=== PATIENT | female | born 1950 | race Caucasian/White ===

== ENCOUNTER → 2016-07-21 | Outpatient (CLI) | payer BC ==
[~2016-07-21] MED LIST: ASPI81TA28 PO; ATOR-24 PO; FLUO10CA48 PO; HYDR25TA5 PO; PLV75 PO
--- NOTE | 2016-07-25 16:27 | MAMMOGRAPHY REPORT ---
BILATERAL DIGITAL SCREENING MAMMOGRAM TOMOSYNTHESIS WITH CAD: 07/21/2016 CLINICAL HISTORY: Routine screening. Patient has no complaints. TECHNIQUE: Breast tomosynthesis in addition to standard 2D mammography was performed. Current study was also evaluated with a Computer Aided Detection (CAD) system. COMPARISON: Comparison is made to exams dated: 06/06/2012 mammogram and 12/07/2005 mammogram - [facility]. BREAST COMPOSITION: There are scattered areas of fibroglandular density in both breasts. FINDINGS: There are a few benign-appearing calcifications in the breasts. No new suspicious mass, ar chitectural distortion or cluster of microcalcifications is seen. IMPRESSION: ACR BI-RADS CATEGORY 1: NEGATIVE There is no mammographic evidence of malignancy. A 1 year screening mammogram is recommended. The pa tient will receive written notification of the results. Approximately 10% of breast cancers are not detected with mammography. A negative mammographic report should not delay biopsy if a clinically suggestive mass is present. Rosi Vazquez M.D. ay/:07/25/2016 16:02:56 Banquet Stewardess: Nancy DELGADO(Luzmaria)(Luna), [facility] letter sent: Normal 1/2 BI-RADS Code: ACR BI-RADS Category 1: Negative
== END | disposition home or self-care (01) ==
LOC: C.MAMM 14:27
PROVIDERS: ATTEND Family Medicine
DX: Z12.31 Encounter for screening mammogram for malignant neoplasm of breast (principal)

== ENCOUNTER 2018-11-12 20:02 | Inpatient (IN) ==
[2018-11-12] MEDS ORDERED: SODIUM CHLORIDE 0.9% 1000ML 2,000 ML IV ONE (21:28)
[2018-11-12 22:15] LABS: Basophils # (auto) 0.02 K/uL (0-0.2); Basophils % (auto) 0.2 %; Eosinophils % (auto) 0.9 %; Hematocrit (blood only) 36.7 % (37-47); Hemoglobin 12.7 g/dL (12.0-16.0); Immature Granulocytes # (auto) 0.03 K/uL (0.00-0.02); Immature Granulocytes % (auto) 0.3 %; Lymphocytes # (auto) 3.41 K/uL (1.2-3.4); Lymphocytes % (auto) 29.1 %; Mean Corpuscular Hemoglobin 30.2 pg (25-34); Mean Corpuscular Hgb Conc 34.6 g/dL (32-36); Mean Corpuscular Volume 87.4 fL (80-100); Mean Platelet Volume 10.3 fL (7.4-10.4); Monocytes % (auto) 6.8 %; Neutrophils # (auto) 7.37 K/uL (1.4-6.5); Neutrophils % (auto) 62.7 %; Platelet Count 364 K/uL (130-400); RDW Coefficient of Variation 15.1 % (11.5-14.5); RDW Standard Deviation 48.4 fL (36.4-46.3); White Blood Count 11.73 K/uL (4.8-10.8)
--- NOTE | 2018-11-12 22:38 | Ultrasound Report ---
ULTRASOUND RIGHT UPPER QUADRANT ABDOMEN CLINICAL HISTORY: Jaundice. 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 COMPARISON STUDY: Abdominal CT dated 10/22/2018. TECHNIQUE: Real-time, grayscale, and color flow sonography of the right upper quadrant of the abdomen was performed. Images are reviewed in the transverse and longitudinal planes. FINDINGS: Liver: The liver is normal in size and somewhat heterogeneous and echotexture. There is moderate intr ahepatic biliary ductal dilatation. The main portal vein is patent. Gallbladder: The the gallbladder is markedly abnormal with large calcified gallstones. The gallbladde r wall is thickened measuring up to 6 mm and shows abnormal flow on color imaging. No pericholecystic fluid is identified. A sonographic Cespedes's sign is reportedly absent. The common bile duct measures up to 1.1 cm in diameter. Pancreas: Visualized portions of the pancreatic head and body are normal in appearance. The splenic v ein is patent. Right kidney: Survey images of the right kidney demonstrate normal size and echotexture. There is no hydronephrosis. Ascites: None. IMPRESSION: 1. There is intra and extrahepatic biliary ductal dilatation, likely unchanged from the 10/22/2018 CT scan. 2. Markedly thick-walled and abnormal appearing gallbladder with large calcified gallstones. This wou ld be consistent with the reported history of gallbladder carcinoma. Correlation the patient's oncolo gical history will be required. 3. A sonographic Cespedes's sign is reportedly absent. Given the abnormal gallbladder acute cholecystit is would be impossible to exclude and clinical correlation will be required. Electronically signed by: Kwasi Diaz M.D. 11/12/2018 10:36 PM
[2018-11-12 22:55] LABS: Appearance Urine Cloudy (Clear); Blood Urine Trace (Negative); Color Urine Dark Yellow; Epithelial Cell Urine Auto >30 /lpf (0-5); Glucose Urine UA Negative (Negative); Ketones Urine Trace (Negative); Leukocyte Esterase Urine 1+ (Negative); Nitrite Urine Positive (Negative); Protein Urine 1+ (Negative); Specific Gravity Urine 1.023 (1.000-1.030); Urobilinogen Urine Negative (Negative)
[2018-11-12 23:02] LABS: Bilirubin Urine 3+ (Negative); Ictotest Urine Positive (Negative)
[2018-11-12 23:04] LABS: Mucus Urine Present (None Prsent); RBC Urine Automated 0-4 /hpf (0-4)
[2018-11-12 23:06] LABS: Bacteria Urine Automated 1+ (Negative)
[2018-11-12 23:08] LABS: Albumin Globulin Ratio 0.5 (0.9-2); Albumin Level 2.5 gm/dl (3.4-5.0); BUN Creatinine Ratio 28.1 (10-20); Bilirubin,Total 9.1 mg/dl (0.2-1); Calcium 9.2 mg/dl (8.5-10.1); Creatinine Clr Calc Pharmacy 72.7 ml/min; Est GFR (African American) 108.3; Est GFR (Non-African American) 93.5; Globulin 5.3 gm/dl (2.5-4.0); Total Protein 7.8 gm/dl (6.4-8.2)
[2018-11-12 23:59] LABS: Potassium 3.5 mmol/L (3.5-5.1)
--- NOTE | 2018-11-13 00:34 | Emergency Department Note ---
Entered by Luz Dong acting as a scribe for Sal Grullon DO History of Present Illness General Chief complaint: Referred by Doctor Stated complaint: POSSIBLE JAUNDICE Source: patient History of Present Illness Provider complaint: weakness Onset (ago): day(s) 4 Pain Consistency: + other (persistent) Maximum Pain Intensity: 6 Relieved By: + none Exacerbated By: + none Associated symptoms: + other (-runny nose, +jaundice); no cough and no shortness of breath The patient is a 68 year old female who presents to the Emergency Room with complaints of weakness for the past 4 days. The patient reports that she had gotten her biopsy results back today that showed her gallbladder cancer. She notes that her PCP Dr. Honeycutt referred her to the ED because her was worried that she has appeared yellow for the past 4 days. She mentions that her biopsy was done at [facility] on the . She notes that her PCP has spoken to Dr. Taylor- Oncology. The patient denies any cough, runny nose, or shortness of breath. Home Medications Home Medications Medication Instructions Recorded Confirmed Type atorvastatin 40 mg PO QPM 10/22/18 11/12/18 History citalopram 10 mg PO QAM 10/22/18 11/12/18 History clopidogrel 75 mg PO QAM 10/22/18 11/12/18 History hydrochlorothiazide 12.5 mg PO QAM 10/22/18 11/12/18 History omeprazole 20 mg PO DAILY 11/12/18 11/12/18 History ondansetron 4 mg PO Q8 PRN 11/12/18 11/12/18 History oxycodone 5 mg PO Q4 PRN 11/12/18 11/12/18 History Allergies Allergy/AdvReac Type Severity Reaction Status Date / Time Penicillins Allergy Intermediate Hives Verified 11/12/18 23:02 Past Med/Surg History Medical History Ambulatory dysfunction Carotid stenosis Social History Preferred Language: Slovak Feels Safe at Home: Yes Smoking Status: Former smoker Review of Systems See HPI for pertinent positives & negatives. and A total of 10 systems reviewed and were otherwise negative Physical Exam Vital Signs Vital Signs - 24 hr 11/12/18 20:24 11/12/18 22:36 11/13/18 00:01 Temperature 36.7 C Temperature Source Oral Sepsis Recent Fever Within 48 Hours No Sepsis New/Unexplained Change in Mental Status No Sepsis Action Taken by Nursing No Action Required Pulse Rate 80 Pulse Rate [Apical] 71 77 Respiratory Rate 16 18 18 Blood Pressure 138/62 Blood Pressure [Left Arm] 157/75 H 178/72 H Blood Pressure Mean 87 Blood Pressure Mean [Left Arm] 102 107 Pulse Oximetry 95 94 94 Oxygen Delivery Method Room Air Room Air Room Air GENERAL: chronically-ill appearing, jaundice, no acute distress EYE EXAM: scleral icterus OROPHARYNX: no exudate, no erythema, lips, buccal mucosa, and tongue normal and mucous membranes are moist NECK: supple, no nuchal rigidity, no adenopathy, non-tender LUNGS: Clear to auscultation. Normal chest wall mechanics HEART: no murmurs, S1 normal and S2 normal ABDOMEN: tenderness to palpation of right upper quadrant, abdomen soft, normo- active bowel sounds, no masses, no rebound or guarding. BACK: Back is symmetrical on inspection and there is no deformity, no midline tenderness, no CVA tenderness. SKIN: no rashes and no bruising UPPER EXTREMITIES: upper extremities are grossly normal. LOWER EXTREMITIES: No pitting edema. NEURO EXAM: Normal sensorium, cranial nerves II-XII grossly intact, normal speech, no gross weakness of arms, no gross weakness of legs. Course ED COURSE: Vital signs were reviewed and showed normotensive. The patients medical record was reviewed The above diagnostic studies were performed and reviewed. ED treatments and interventions as stated above. 2: The patient was evaluated in room C6. A complete history and physical examination was performed. 2345: I discussed the patient's case with [facility], they report that they do not haven any beds for her tonight. The patient will be admitted for overnight observation here. 2350: I discussed the patient's case with Dr. Carbone- [facility] Hospitalist, he will accept the patient for further evaluation. 2357: Upon reevaluation, the patient is resting comfortably. I discussed my findings with the patient and she understands and agrees with the treatment plan. Based on the patients age, coexisting illnesses, exam and lab findings the decision to treat as an inpatient was made. The patient remained stable while under my care. The patient will be evaluated for further management. Administered Medications Discontinued Medications Sodium Chloride (Nss 1000ml) 2,000 mls @ 999 mls/hr IV .Q2H1M ONE Stop: 11/12/18 23:28 Last Admin: 11/12/18 22:12 Dose: 999 mls/hr Documented by: [id number] Medical Decision Making Differential Diagnosis Differential diagnoses includes but is not limited to gastritis, peptic ulcer disease, GERD, gallbladder disease, pancreatitis, small bowel obstruction, acute coronary syndrome, pericarditis, ischemic bowel, irritable bowel disease, irritable bowel syndrome, appendicitis, diverticulitis, malignancy, hernia, urinary tract infection, torsion, perforation, trauma, infectious. Medical Records Attestation: I reviewed the patient's medical records. Home Medications Current Medication List: was personally reviewed by me Laboratory Data Attestation: I reviewed the patient's lab results. Result diagrams: 11/12/18 22:05 11/12/18 23:25 Lab Results 11/12/18 11/12/18 11/12/18 Range/Units 22:05 22:05 22:06 WBC 11.73 H (4.8-10.8) K/uL RBC 4.20 (4.2-5.4) M/uL Hgb 12.7 (12.0-16.0) g/dL Hct 36.7 L (37-47) % MCV 87.4 (80-100) fL MCH 30.2 (25-34) pg MCHC 34.6 (32-36) g/dL RDW Std Deviation 48.4 H (36.4-46.3) fL RDW Coeff of Arleen 15.1 H (11.5-14.5) % Plt Count 364 (130-400) K/uL MPV 10.3 (7.4-10.4) fL Immature Gran % (Auto) 0.3 % Neut % (Auto) 62.7 % Lymph % (Auto) 29.1 % Pettis % (Auto) 6.8 % Eos % (Auto) 0.9 % Baso % (Auto) 0.2 % Immature Gran # (Auto) 0.03 H (0.00-0.02) K/uL Neut # (Auto) 7.37 H (1.4-6.5) K/uL Lymph # (Auto) 3.41 H (1.2-3.4) K/uL Pettis # (Auto) 0.80 H (0.11-0.59) K/uL Eos # (Auto) 0.10 (0-0.5) K/uL Baso # (Auto) 0.02 (0-0.2) K/uL Sodium 131 L (136-145) mmol/L Potassium (3.5-5.1) mmol/L Chloride 94 L (98-107) mmol/L Carbon Dioxide 32 (21-32) mmol/L Anion Gap 5.0 (3-11) BUN 18 (7-18) mg/dl Creatinine 0.63 (0.6-1.2) mg/dl Est Cr Clr Drug Dosing 72.7 ml/min Est GFR ( Amer) 108.3 Est GFR (Non-Af Amer) 93.5 BUN/Creatinine Ratio 28.1 H (10-20) Glucose 107 H (70-99) mg/dl Calcium 9.2 (8.5-10.1) mg/dl Total Bilirubin 9.1 H (0.2-1) mg/dl AST (15-37) U/L ALT 291 H (12-78) U/L Alkaline Phosphatase 1573 H (45-117) U/L Total Protein 7.8 (6.4-8.2) gm/dl Albumin 2.5 L (3.4-5.0) gm/dl Globulin 5.3 H (2.5-4.0) gm/dl Albumin/Globulin Ratio 0.5 L (0.9-2) Lipase 112 (73-393) U/L Urine Color Dark Yellow Urine Appearance Cloudy A (Clear) Urine pH 6.0 (4.5-7.5) Ur Specific Fingal 1.023 (1.000-1.030) Urine Protein 1+ H (Negative) Urine Glucose (UA) Negative (Negative) Urine Ketones Trace H (Negative) Urine Blood Trace H (Negative) Urine Nitrite Positive A (Negative) Urine Bilirubin 3+ H (Negative) Urine Urobilinogen Negative (Negative) Ur Leukocyte Esterase 1+ H (Negative) Urine WBC (Auto) 10-30 H (0-5) /hpf Urine RBC (Auto) 0-4 (0-4) /hpf U Hyaline Cast (Auto) 5-10 H (0-5) /lpf U Epithel Cells (Auto) >30 H (0-5) /lpf Urine Bacteria (Auto) 1+ H (Negative) Urine Mucus Present A (None Prsent) 11/12/18 Range/Units 23:25 WBC (4.8-10.8) K/uL RBC (4.2-5.4) M/uL Hgb (12.0-16.0) g/dL Hct (37-47) % MCV (80-100) fL MCH (25-34) pg MCHC (32-36) g/dL RDW Std Deviation (36.4-46.3) fL RDW Coeff of Arleen (11.5-14.5) % Plt Count (130-400) K/uL MPV (7.4-10.4) fL Immature Gran % (Auto) % Neut % (Auto) % Lymph % (Auto) % Pettis % (Auto) % Eos % (Auto) % Baso % (Auto) % Immature Gran # (Auto) (0.00-0.02) K/uL Neut # (Auto) (1.4-6.5) K/uL Lymph # (Auto) (1.2-3.4) K/uL Pettis # (Auto) (0.11-0.59) K/uL Eos # (Auto) (0-0.5) K/uL Baso # (Auto) (0-0.2) K/uL Sodium (136-145) mmol/L Potassium 3.5 (3.5-5.1) mmol/L Chloride (98-107) mmol/L Carbon Dioxide (21-32) mmol/L Anion Gap (3-11) BUN (7-18) mg/dl Creatinine (0.6-1.2) mg/dl Est Cr Clr Drug Dosing ml/min Est GFR ( Amer) Est GFR (Non-Af Amer) BUN/Creatinine Ratio (10-20) Glucose (70-99) mg/dl Calcium (8.5-10.1) mg/dl Total Bilirubin (0.2-1) mg/dl AST 416 H (15-37) U/L ALT (12-78) U/L Alkaline Phosphatase (45-117) U/L Total Protein (6.4-8.2) gm/dl Albumin (3.4-5.0) gm/dl Globulin (2.5-4.0) gm/dl Albumin/Globulin Ratio (0.9-2) Lipase (73-393) U/L Urine Color Urine Appearance (Clear) Urine pH (4.5-7.5) Ur Specific Fingal (1.000-1.030) Urine Protein (Negative) Urine Glucose (UA) (Negative) Urine Ketones (Negative) Urine Blood (Negative) Urine Nitrite (Negative) Urine Bilirubin (Negative) Urine Urobilinogen (Negative) Ur Leukocyte Esterase (Negative) Urine WBC (Auto) (0-5) /hpf Urine RBC (Auto) (0-4) /hpf U Hyaline Cast (Auto) (0-5) /lpf U Epithel Cells (Auto) (0-5) /lpf Urine Bacteria (Auto) (Negative) Urine Mucus (None Prsent) Imaging Data Radiologist's Impression: Radiology results as stated below per my review and the radiologist's interpretation: ULTRASOUND RIGHT UPPER QUADRANT ABDOMEN CLINICAL HISTORY: Jaundice. 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 COMPARISON STUDY: Abdominal CT dated 10/22/2018. TECHNIQUE: Real-time, grayscale, and color flow sonography of the right upper quadrant of the abdomen was performed. Images are reviewed in the transverse and longitudinal planes. FINDINGS: Liver: The liver is normal in size and somewhat heterogeneous and echotexture. There is moderate intrahepatic biliary ductal dilatation. The main portal vein is patent. Gallbladder: The the gallbladder is markedly abnormal with large calcified gallstones. The gallbladder wall is thickened measuring up to 6 mm and shows abnormal flow on color imaging. No pericholecystic fluid is identified. A sonographic Cespedes's sign is reportedly absent. The common bile duct measures up to 1.1 cm in diameter. Pancreas: Visualized portions of the pancreatic head and body are normal in appearance. The splenic vein is patent. Right kidney: Survey images of the right kidney demonstrate normal size and echotexture. There is no hydronephrosis. Ascites: None. IMPRESSION: 1. There is intra and extrahepatic biliary ductal dilatation, likely unchanged from the 10/22/2018 CT scan. 2. Markedly thick-walled and abnormal appearing gallbladder with large calcified gallstones. This would be consistent with the reported history of gallbladder carcinoma. Correlation the patient's oncological history will be required. 3. A sonographic Cespedes's sign is reportedly absent. Given the abnormal gallbladder acute cholecystitis would be impossible to exclude and clinical correlation will be required. Electronically signed by: Kwasi Diaz M.D. 11/12/2018 10:36 PM Blood Pressure Blood Pressure Findings: Elevated blood pressure Blood Pressure Disposition: further management by hospitalist NACHO Narrative Patient is a 68-year-old female that presents the ER for right upper quadrant abdominal pain associated with a recent diagnosis of biliary carcinoma. She has been turning yellow for the past 4 to 5 days. On my exam she is clearly jaundiced. IV was established blood work was obtained showed mild leukocytosis of 11.7 thousand consistent with previous. No significant anemia. BMP with mild hyponatremia. Patient had a marked transaminitis along with an elevated bilirubin at 9.1. Alk phos is elevated at 1500 as well. UA with epithelial cells and nitrates although nitrates are likely secondary to the elevated bilirubin. Will not treat at this time as she is asymptomatic. Ultrasound shows intra-and extra hepatic ducts dilated. Discussed with Dr. Hernández here who recommended transfer. Discussed with [facility] hospitalist Dr. Galo [facility]. They graciously accepted the patient unfortunately there are no beds at this time. Patient will be placed on the waiting list. Discussed with our hospitalist as the patient will be in-house to at least midmorning if not tomorrow afternoon. Patient family were updated bedside. Impression & Plan Gallbladder cancer, Biliary obstruction, Jaundice, Transaminitis Discharge Plan Visit Data Chief Complaint: Referred by Doctor Stated Complaint: POSSIBLE JAUNDICE ED Provider: Sal Grullon Discharge Problem: Gallbladder cancer, Biliary obstruction, Jaundice, Transaminitis Patient Disposition: Admitted As Inpatient Forms Stand Alone Forms: My [facility] Prescriptions Prescriptions: No Action atorvastatin 40 mg tablet 40 mg PO QPM RF: 0 citalopram 10 mg tablet 10 mg PO QAM RF: 0 clopidogrel 75 mg tablet 75 mg PO QAM RF: 0 hydrochlorothiazide 12.5 mg tablet 12.5 mg PO QAM RF: 0 oxycodone 5 mg capsule 5 mg PO Q4 PRN (Reason: Pain) RF: 0 omeprazole 20 mg capsule,delayed release(DR/EC) 20 mg PO DAILY RF: 0 ondansetron 4 mg tablet,disintegrating 4 mg PO Q8 PRN (Reason: Nausea) RF: 0 Referrals Referrals: Alona Honeycutt MD [Primary Care Provider] - The scribe's documentation has been prepared under my direction and personally reviewed by me in its entirety. I confirm that the note above accurately reflects all work, treatment, procedures, and medical decision making performed by me.
--- NOTE | 2018-11-13 00:41 | History & Physical Report ---
Date of Service November 13, 2018 Assessment & Plan (1) Jaundice: This is a 68 yo F who was recently diagnosed with gallbladder cancer, who presents with worsening jaundice. She had spoken with her specialists at [facility] earlier today, as they were giving her the confirmatory d iagnosis of gallbladder cancer. She mentioned that her skin has become more and more yellow and they advised her to come to the ED. Endorses stable intermittent right upper quadrant pain that radiates to her back, which she has been controlling with as needed oxycodone 5 mg every 4 hours. She otherwise denies headache, chest pain, difficulty breathing, numbness or tingling or leg pain. Stools have been regular. Labs in the ED remarkable for mild leukocytosis, hyponatremia sodium 131, normal BUN and creatinine, transaminitis AST over ALT 416/291, elevated alk phos 1573, hyperbilirubinemia 9.1, hypoalbuminemia 2.5, normal lipase. Gallbladder ultrasound showed markedly thick-walled and abnormal appearing gallbladder with large calcified stones, intra-and extrahepatic biliary ductal dilatation. Hyperbilirubinemia, transaminitis, elevated alk phos and new jaundice in setting of recently diagnosed gallbladder cancer with concern for metastases -Plan for transfer to [facility] once bed available -- they plan to consult GI, keep NPO, plan for ERCP with stenting, with further oncologic plan to be established. (Agustín Galo M.D. Internal Medicine Attending Physician) -will admit to med/tele while awaiting transfer, keep NPO except for critical meds -- will HOLD AM plavix 11/14 in light of hi risk procedure -NSS @ maintenance in setting of mild hyponatremia -Pain control with IV dilaudid FEN/GI: NPO except meds/sips. NSS @ 80ml/hr DVT ppx: SCDs. No chemical anticoagulation while awaiting instrumentation upon transfer to [facility]. CODE STATUS: DNR/DNI as discussed with pt, states she has a living will as well. DISPO: med/tele while awaiting transfer to [facility]. Other ongoing medical problems: Hypertension -continue hydrochlorothiazide h/o CVA, carotid artery stenosis status post endarterectomy and stents-will HOLD AM plavix 11/14 in light of high risk procedure Anxiety-continue citalopram to avoid withdrawal symptoms Depression-as above Hyperlipidemia-hold statin in setting of transaminitis, while n.p.o. Systolic murmur-known, stable. (2) Gallbladder cancer: (3) Biliary obstruction: (4) Transaminitis: History of Present Illness Chief Complaint: recent diagnosis gallbladder cancer, new jaundice, hyperbilirubinemia, awaiting transfer to [facility] Primary Care Provider: Alona Honeycutt MD This is a 68 yo F who was recently diagnosed with gallbladder cancer, who presents with worsening jaundice. She had spoken with her specialists at [facility] earlier today, as they were giving her the confirmatory diagnosis of gallbladder cancer. She mentioned that her skin has become more and more yellow and they advised her to come to the ED. Labs in the ED remarkable for mild leukocytosis, hyponatremia sodium 131, normal BUN and creatinine, transaminitis AST over ALT 416/291, elevated alk phos 1573, hyperbilirubinemia 9.1, hypoalbuminemia 2.5, normal lipase. Gallbladder ultrasound showed markedly thick-walled and abnormal appearing gallbladder with large calcified stones, intra-and extrahepatic biliary ductal dilatation. Patient herself reports right upper quadrant pain that radiates to her back, which she has been controlling with as needed oxycodone 5 mg every 4 hours. She otherwise denies headache, chest pain, difficulty breathing, numbness or tingling or leg pain. Stools have been regular. PMH Hypertension Stroke Anxiety Depression Hyperlipidemia Carotid artery stenosis status post endarterectomy and stents, on Plavix Systolic murmur Allergies Allergy/AdvReac Type Severity Reaction Status Date / Time Penicillins Allergy Intermediate Hives Verified 11/12/18 23:02 Home Medications Home Medications Medication Instructions Recorded Confirmed Type atorvastatin 40 mg PO QPM 10/22/18 11/12/18 History citalopram 10 mg PO QAM 10/22/18 11/12/18 History clopidogrel 75 mg PO QAM 10/22/18 11/12/18 History hydrochlorothiazide 12.5 mg PO QAM 10/22/18 11/12/18 History omeprazole 20 mg PO DAILY 11/12/18 11/12/18 History ondansetron 4 mg PO Q8 PRN 11/12/18 11/12/18 History oxycodone 5 mg PO Q4 PRN 11/12/18 11/12/18 History Past Med/Surg History Medical History Ambulatory dysfunction Carotid stenosis Social History Preferred Language: Citizen Of [place] Feels Safe at Home: Yes Smoking Status: Former smoker Review of Systems Review of Systems: All systems reviewed & are unremarkable except as noted in HPI & below Physical Exam Physical Exam: Vitals noted and within normal limits with the exception of hypertension 181/90. GENERAL: Awake, alert to person, place, and time, nontoxic-appearing, in no distress. HENT: Normocephalic, atraumatic. Mucus membranes appear moist. EYES: Normal conjunctiva. Sclera very mildly icteric. EOMI. NECK: Supple. Full range of motion. No JVD. RESPIRATORY: Clear to auscultation. Normal work of breathing. CARDIAC: Regular rate, normal rhythm. Extremities warm and well perfused, mild systolic murmur noted; ABDOMEN: Soft, non-distended. Mild tenderness to palpation in right upper qu adrant. No rebound or guarding. No masses. Bowel sounds are normal. LOWER EXTREMITIES: Inspection of calves reveal equal size bilaterally. They are non-tender. No edema. No discoloration. NEURO: No gross focal motor deficits noted. Sensation in tact. CN II-XII grossly in tact. . SKIN: + Jaundice noted. PSYCH: Appropriate mood and affect. Cooperative. Exam as done by Mary Grace Brown MD, Back Tender. Results & Data Vital Signs (Past 12 Hours) Vital Signs Temp Pulse Pulse Resp BP BP Pulse Ox 11/13/18 00:01 77 18 178/72 H 94 11/12/18 22:36 71 18 157/75 H 94 11/12/18 20:24 36.7 C 80 16 138/62 95 Laboratory Results 11/12/18 11/12/18 11/12/18 Range/Units 23:25 22:06 22:05 WBC (4.8-10.8) K/uL RBC (4.2-5.4) M/uL Hgb (12.0-16.0) g/dL Hct (37-47) % MCV (80-100) fL MCH (25-34) pg MCHC (32-36) g/dL RDW Std Deviation (36.4-46.3) fL RDW Coeff of Arleen (11.5-14.5) % Plt Count (130-400) K/uL MPV (7.4-10.4) fL Immature Gran % (Auto) % Neut % (Auto) % Lymph % (Auto) % [place] % (Auto) % Eos % (Auto) % Baso % (Auto) % Immature Gran # (Auto) (0.00-0.02) K/uL Neut # (Auto) (1.4-6.5) K/uL Lymph # (Auto) (1.2-3.4) K/uL [place] # (Auto) (0.11-0.59) K/uL Eos # (Auto) (0-0.5) K/uL Baso # (Auto) (0-0.2) K/uL Sodium 131 L (136-145) mmol/L Potassium 3.5 (3.5-5.1) mmol/L Chloride 94 L (98-107) mmol/L Carbon Dioxide 32 (21-32) mmol/L Anion Gap 5.0 (3-11) BUN 18 (7-18) mg/dl Creatinine 0.63 (0.6-1.2) mg/dl Est Cr Clr Drug Dosing 72.7 ml/min Est GFR ( Amer) 108.3 Est GFR (Non-Af Amer) 93.5 BUN/Creatinine Ratio 28.1 H (10-20) Glucose 107 H (70-99) mg/dl Calcium 9.2 (8.5-10.1) mg/dl Total Bilirubin 9.1 H (0.2-1) mg/dl AST 416 H (15-37) U/L ALT 291 H (12-78) U/L Alkaline Phosphatase 1573 H (45-117) U/L Total Protein 7.8 (6.4-8.2) gm/dl Albumin 2.5 L (3.4-5.0) gm/dl Globulin 5.3 H (2.5-4.0) gm/dl Albumin/Globulin Ratio 0.5 L (0.9-2) Lipase 112 (73-393) U/L Urine Color Dark Yellow Urine Appearance Cloudy A (Clear) Urine pH 6.0 (4.5-7.5) Ur Specific [place] 1.023 (1.000-1.030) Urine Protein 1+ H (Negative) Urine Glucose (UA) Negative (Negative) Urine Ketones Trace H (Negative) Urine Blood Trace H (Negative) Urine Nitrite Positive A (Negative) Urine Bilirubin 3+ H (Negative) Urine Urobilinogen Negative (Negative) Ur Leukocyte Esterase 1+ H (Negative) Urine WBC (Auto) 10-30 H (0-5) /hpf Urine RBC (Auto) 0-4 (0-4) /hpf U Hyaline Cast (Auto) 5-10 H (0-5) /lpf U Epithel Cells (Auto) >30 H (0-5) /lpf Urine Bacteria (Auto) 1+ H (Negative) Urine Mucus Present A (None Prsent) 11/12/18 Range/Units 22:05 WBC 11.73 H (4.8-10.8) K/uL RBC 4.20 (4.2-5.4) M/uL Hgb 12.7 (12.0-16.0) g/dL Hct 36.7 L (37-47) % MCV 87.4 (80-100) fL MCH 30.2 (25-34) pg MCHC 34.6 (32-36) g/dL RDW Std Deviation 48.4 H (36.4-46.3) fL RDW Coeff of Arleen 15.1 H (11.5-14.5) % Plt Count 364 (130-400) K/uL MPV 10.3 (7.4-10.4) fL Immature Gran % (Auto) 0.3 % Neut % (Auto) 62.7 % Lymph % (Auto) 29.1 % [place] % (Auto) 6.8 % Eos % (Auto) 0.9 % Baso % (Auto) 0.2 % Immature Gran # (Auto) 0.03 H (0.00-0.02) K/uL Neut # (Auto) 7.37 H (1.4-6.5) K/uL Lymph # (Auto) 3.41 H (1.2-3.4) K/uL [place] # (Auto) 0.80 H (0.11-0.59) K/uL Eos # (Auto) 0.10 (0-0.5) K/uL Baso # (Auto) 0.02 (0-0.2) K/uL Sodium (136-145) mmol/L Potassium (3.5-5.1) mmol/L Chloride (98-107) mmol/L Carbon Dioxide (21-32) mmol/L Anion Gap (3-11) BUN (7-18) mg/dl Creatinine (0.6-1.2) mg/dl Est Cr Clr Drug Dosing ml/min Est GFR ( Amer) Est GFR (Non-Af Amer) BUN/Creatinine Ratio (10-20) Glucose (70-99) mg/dl Calcium (8.5-10.1) mg/dl Total Bilirubin (0.2-1) mg/dl AST (15-37) U/L ALT (12-78) U/L Alkaline Phosphatase (45-117) U/L Total Protein (6.4-8.2) gm/dl Albumin (3.4-5.0) gm/dl Globulin (2.5-4.0) gm/dl Albumin/Globulin Ratio (0.9-2) Lipase (73-393) U/L Urine Color Urine Appearance (Clear) Urine pH (4.5-7.5) Ur Specific [place] (1.000-1.030) Urine Protein (Negative) Urine Glucose (UA) (Negative) Urine Ketones (Negative) Urine Blood (Negative) Urine Nitrite (Negative) Urine Bilirubin (Negative) Urine Urobilinogen (Negative) Ur Leukocyte Esterase (Negative) Urine WBC (Auto) (0-5) /hpf Urine RBC (Auto) (0-4) /hpf U Hyaline Cast (Auto) (0-5) /lpf U Epithel Cells (Auto) (0-5) /lpf Urine Bacteria (Auto) (Negative) Urine Mucus (None Prsent) Supervising Physician Co-Signing Physician Notes Patient was seen and examined by me personally. I reviewed the chart, the orders and discussed the case in detail with Dr. Mary Grace Brown MD. I read this H&P and agree with its contents to entirety. PG Care Time/CCT Total # of Minutes Spent Total Time Spent with Patient: Total time spent is greater than 50% in coordination of care (as documented) at patient's floor/unit and/or counseling patient: Resident Activity Tracking Resident Involvement: Resident Care Provided Care Provided: Adult [facility] Medicine
[2018-11-13] MEDS ORDERED: MAGNESIUM HYDROXIDE SUSP 30 ML UDC PO PRN (02:42)
[2018-11-13] MEDS ORDERED: ONDANSETRON INJ 2 MG/ML 2 ML VIAL IV PRN (02:42)
[2018-11-13] MEDS ORDERED: ALUMINUM/MAGNESIUM SUSP 30 ML UDC PO PRN (02:42)
[2018-11-13] MEDS: SODIUM CHLORIDE 0.9% 1000ML 1,000 ML IV SCH ×2 (03:03→15:27)
[2018-11-13] MEDS: HYDROmorphone INJ 0.5 MG/0.5 ML SYR IV PRN ×5 (03:04→23:35)
--- NOTE | 2018-11-13 07:43 | Discharge Summary ---
Date of Service November 13, 2018 Admission HPI Per Admitting Provider This is a 68 yo F who was recently diagnosed with gallbladder cancer, who presents with worsening jaundice. She had spoken with her specialists at [facility] earlier today, as they were giving her the confirmatory diagnosis of gallbladder cancer. She mentioned that her skin has become more and more yellow and they advised her to come to the ED. Labs in the ED remarkable for mild leukocytosis, hyponatremia sodium 131, normal BUN and creatinine, transaminitis AST over ALT 416/291, elevated alk phos 1573, hyperbilirubinemia 9.1, hypoalbuminemia 2.5, normal lipase. Gallbladder ultrasound showed markedly thick-walled and abnormal appearing gallbladder with large calcified stones, intra-and extrahepatic biliary ductal dilatation. Patient herself reports right upper quadrant pain that radiates to her back, which she has been controlling with as needed oxycodone 5 mg every 4 hours. She otherwise denies headache, chest pain, difficulty breathing, numbness or tingling or leg pain. Stools have been regular. PMH Hypertension Stroke Anxiety Depression Hyperlipidemia Carotid artery stenosis status post endarterectomy and stents, on Plavix Systolic murmur Admission Exam Per Admitting Provider Vitals noted and within normal limits with the exception of hypertension 181/90. GENERAL: Awake, alert to person, place, and time, nontoxic-appearing, in no distress. HENT: Normocephalic, atraumatic. Mucus membranes appear moist. EYES: Normal conjunctiva. Sclera very mildly icteric. EOMI. NECK: Supple. Full range of motion. No JVD. RESPIRATORY: Clear to auscultation. Normal work of breathing. CARDIAC: Regular rate, normal rhythm. Extremities warm and well perfused, mild systolic murmur noted; ABDOMEN: Soft, non-distended. Mild tenderness to palpation in right upper quadrant. No rebound or guarding. No masses. Bowel sounds are normal. LOWER EXTREMITIES: Inspection of calves reveal equal size bilaterally. They are non-tender. No edema. No discoloration. NEURO: No gross focal motor deficits noted. Sensation in tact. CN II-XII grossly in tact. . SKIN: + Jaundice noted. PSYCH: Appropriate mood and affect. Cooperative. Exam as done by Mary Grace Brown MD, Modeling Instructor. Principal Diagnosis Jaundice secondary to gallbladder cancer Discharge Exam Vitals and nursing notes reviewed. GENERAL: Awake and alert, nontoxic-appearing, in no acute distress. HENT: Normocephalic, atraumatic. Mucus membranes moist. EYES: Normal conjunctiva. Sclera icteric. EOMI. NECK: Supple. Full range of motion. No JVD. RESPIRATORY: Clear to auscultation. Normal work of breathing. CARDIAC: Regular rate, normal rhythm. Extremities warm and well perfused, mild systolic murmur noted; ABDOMEN: Soft, non-distended. Mild tenderness to palpation in RUQ. No rebound or guarding. No masses. Bowel sounds are normal. LOWER EXTREMITIES: Inspection of calves reveal equal size bilaterally. They are non-tender. No edema. No discoloration. NEURO: No gross focal motor deficits noted. Sensation in tact. CN II-XII grossly in tact. . SKIN: + Jaundice noted. PSYCH: Appropriate mood and affect. Cooperative. Discharge Data Allergies Allergy/AdvReac Type Severity Reaction Status Date / Time Penicillins Allergy Intermediate Hives Verified 11/12/18 23:02 Consultations 11/12/18 23:54 ED Decision to Admit Stat 11/13/18 02:42 Consult Case Management - Discharge Planning Routine Ordered Studies 11/12/18 21:28 US gallbladder Stat Hospital Course (1) Jaundice: This is a 68 yo F who was recently diagnosed with gallbladder cancer, who presents with worsening jaundice. She had spoken with her specialists at [facility] earlier today, as they were giving her the confirmatory diagnosis of gallbladder cancer. She mentioned that her skin has become more and more yellow and they advised her to come to the ED. Endorses stable intermittent right upper quadrant pain that radiates to her back, which she has been controlling with as needed oxycodone 5 mg every 4 hours. She otherwise denies headache, chest pain, difficulty breathing, numbness or tingling or leg pain. Stools have been regular. Labs in the ED remarkable for mild leukocytosis, hyponatremia sodium 131, normal BUN and creatinine, transaminitis AST over ALT 416/291, elevated alk phos 1573, hyperbilirubinemia 9.1, hypoalbuminemia 2.5, normal lipase. Gallbladder ultrasound showed markedly thick-walled and abnormal appearing gallbladder with large calcified stones, intra-and extrahepatic biliary ductal dilatation. Hyperbilirubinemia, transaminitis, elevated alk phos and new jaundice in setting of recently diagnosed gallbladder cancer with concern for metastases Patient was admitted to general medical floor with telemetry for monitoring while awaiting transfer to [facility] for escalation of care. The night resident spoke with Agustín Galo M.D. Internal Medicine Attending Physician to coordinate transfer. Accepting physician request the patient to be kept n.p.o. and stay plan to consult GI for ERCP with stenting and further oncological work-up. Patient has been n.p.o. except sips and meds, held a.m. Plavix on November 13 in preparation of high risk procedure. Patient was provided MIVF with normal saline in the setting of mild hyponatremia and secondary to n.p.o. status. Pain control was provided with IV Dilaudid. FEN/GI: NPO except meds/sips. NSS @ 80ml/hr DVT ppx: SCDs. No chemical anticoagulation while awaiting instrumentation upon transfer to [facility]. CODE STATUS: DNR/DNI as discussed with pt, states she has a living will as well. DISPO: med/tele while awaiting transfer to [facility]. Other ongoing medical problems: Hypertension -continue hydrochlorothiazide h/o CVA, carotid artery stenosis status post endarterectomy and stents-will HOLD AM plavix 11/14 in light of high risk procedure Anxiety-continue citalopram to avoid withdrawal symptoms Depression-as above Hyperlipidemia-hold statin in setting of transaminitis, while n.p.o. Systolic murmur-known, stable. Devin Sepulveda MD PGY 2, FCM This chart was completed utilizing [employer] voice recognition software. Grammatical errors, random word insertions, pronoun errors, and in complete sentences are an occasional consequence of the system. Any questions or concerns about the content, text, or information contained within the body of this dictation should be addressed directly to the physician for clarification. (2) Gallbladder cancer: (3) Biliary obstruction: (4) Transaminitis: Total Time Total Time Spent Total Time Spent (In Minutes): >30 Discharge Plan Discharge Items Patient Disposition: Transfer Acute Care Hospital Reason For Visit: HYPERBILIRUBINEMIA, GB CANCER, AWAIT TRANSFER [facility] Discharge Diagnosis: Hyperbilirubinemia secondary to gallbladder cancer Activity: Resume your previous activity Non-emergency contact: Primary Care Provider Call non-emergency contact if: you have any medication questions and your pain is not controlled Follow-up/Referrals: Alona Honeycutt MD [Primary Care Provider] - Diet: Heart Healthy Addtl Attending Provider Instructions: Care instructions: You were admitted to [facility] for treatment of Hyperbilirubinemia secondary to gallbladder cancer. A discharge summary will be sent to your primary care physician to ensure continuity of care. Please bring this discharge summary with you to your next office appointment so that your provider can review it at that time. Labs in the ED remarkable for mild leukocytosis, hyponatremia sodium 131, normal BUN and creatinine, transaminitis AST over ALT 416/291, elevated alk phos 1573, hyperbilirubinemia 9.1, hypoalbuminemia 2.5, normal lipase. Gallbladder ultrasound showed markedly thick-walled and abnormal appearing gallbladder with large calcified stones, intra-and extrahepatic biliary ductal dilatation. Follow-up appointments: - Keep all your follow-up appointments as already scheduled. If you cannot make an appointment, notify your provider. - Please call to request a follow-up appointment with your primary care physician within one week of discharge. Please let us know if you are unable to obtain an appointment Medications: - Your medication list has been reviewed and reconciled upon discharge to ensure accuracy and continuity of care. - You are provided with a list of all your current medications at this time. Please review this list closely and make note of any changes. - Please take all of your medications exactly as prescribed. - Tell your primary care provider if you cannot afford your medications. - Call your primary care provider if you are having any side effects or any other problems. - Call your primary care provider before taking any over the counter medications or supplements, including herbals and vitamins, because some of these may interact with your current medications and/or make your symptoms worse. Symptoms: Please call your primary care provider for symptoms including, but not limited to: fevers (temperatures greater than 100.4), chills, intractable nausea or vomiting, diarrhea, rash, shortness of breath, bleeding, pain, or if you experience any worsening of the symptoms that brought you to the hospital. For EMERGENCY and VERY SERIOUS health-related issues, such as chest pain, shortness of breath, or sudden onset of the symptoms that brought you to the hospital, you may need to call 911 or go directly to the Emergency Room It has been our privilege to take care of you during your hospital stay. And Above All Else Feel Better! Best Wishes, Devin Sepulveda MD PGY2 Resident, Family & Community Medicine [facility] F[facility] Residency at [facility] [address] ([place], [place]), [address] : [place] [address] Pending Studies at Discharge: No Stand-Alone Forms: My [facility] Skilled Items Patient informed of condition?: Yes DNR: Yes Discharge Level of Care: Other Communicable Disease: No Discharge Prognosis: Stable Lines: Peripheral IV Urinary Catheter: No Medications and DC Order Prescriptions: Continued atorvastatin 40 mg tablet 40 mg PO QPM RF: 0 citalopram 10 mg tablet 10 mg PO QAM RF: 0 clopidogrel 75 mg tablet 75 mg PO QAM RF: 0 hydrochlorothiazide 12.5 mg tablet 12.5 mg PO QAM RF: 0 oxycodone 5 mg capsule 5 mg PO Q4 PRN (Reason: Pain) RF: 0 omeprazole 20 mg capsule,delayed release(DR/EC) 20 mg PO DAILY RF: 0 ondansetron 4 mg tablet,disintegrating 4 mg PO Q8 PRN (Reason: Nausea) RF: 0 Discharge Orders: Discharge Order (Routine); Ordered 11/13/18 Ordered By: Mary Grace Brown Admission Data Admit Date/Time: 11/13/18 01:03 Attending Provider: Carlota Bell Admit Provider: Mary Grace Brown Primary Care Provider: Alona Honeycutt Other Providers: Dioni Carbone Other Interventions: Discharge Summary Assessment (RN) Last Done: 11/14/18 01:00 DC Date/Time DO NOT enter until pt leaves facility: 11/13/18 23:45 Supervising Physician Co-Signing Physician Notes Patient seen and examined with PGY-2 Dr. Sepulveda and PGY-3 Dr. Barger. Agree with hospital course, exam findings, assessment and plan of care as outlined by Dr. Sepulveda. In brief, Ms. Leos is a 68 year old female with recently diagnosed gallbladder cancer admitted for worsening jaundice. During her stay at [facility], she was noted to have +jaundice, increased bilirubin, elevated LFTs and RUQ pain. Her pain was controlled. No vomiting. Arrangements had been made by the night team for her to be transferred to [facility]. A bed is now available and she will be transported via BLS to [place]. I personally spent 35 minutes discharge planning for the patient. Resident Activity Tracking Resident Involvement: Resident Care Provided Care Provided: Adult Hospital Medicine
[2018-11-13] MEDS ORDERED: CITALOPRAM 20 MG TAB PO SCH (09:00)
[2018-11-13] MEDS ORDERED: hydroCHLOROthiazide 25 MG TAB PO SCH (09:00)
[2018-11-13] MEDS: HydrALAZINE HCL 20 MG/ML VIAL IV PRN ×2 (19:16→23:35)
== END 2018-11-13 23:45 | disposition short-term general hospital (02) | DRG 445 ==
LOC: ED 20:02 → 2W 11-13 01:03 → SUATTDRO 11-13 01:03 → 2W 11-13 02:15

== ENCOUNTER 2018-12-13 15:38 | Inpatient (IN) ==
--- NOTE | 2018-12-13 17:11 | History & Physical Report ---
Date of Service December 13, 2018 Assessment & Plan (1) Intractable nausea and vomiting: Had one episode of vomiting prior to chemo yesterday, now intractable N/V since receiving chemotherapy for first time on 12/12 Nonbloody Not passing flatus today, last BM 12/11 LFTs all normal, so not likely recurrent biliary obstruction WBC count high but could be stress response to vomiting. 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 -started chemotherapy 12/12 -poor prognosis -pain control (5) Hypertension: hypertensive urgency secondary to pain and not taking usual med today--> BP 199/74 -holding po HCTZ -give IV hydralazine prn (6) Hyperlipidemia: hold home statin while NPO (7) Anxiety: no longer taking her Celexa -controlled (8) Depression: controlled as above, not currently on SSRI anymore (9) Carotid stenosis: -holding home Plavix and statin is s/p Left CEA and also has carotid stent (10) History of biliary stent insertion: in 11/2018 for obstructive jaundice (11) DVT prophylaxis: SCDs only in case of need for procedure Dispo-admit to medical floor DNR/DNI as discussed with patient Discussed her care with her on phone and brother at bedside History of Present Illness Chief Complaint: nausea/vomiting, abdominal pain Primary Care Provider: Alona Honeycutt MD This patient is a 68 yo female with a h/o HTN, hyperlipidemia, BERTO s/p left CEA, anxiety/depression, and recent diagnosis of poorly differentiated gallbladder carcinoma, who [facility] for intractable nausea/vomiting and diffuse abdominal pain. SHe reports she had one episode of vomiting yesterday before receiving her first chemotherapy treatment. SHe was able to tolerate the chemotherapy and went home and ate dinner. She then woke up this AM and has been vomiting ever since. The vomit is nonbloody, no coffee ground emesis. It is green-brown in color. SHe has her usual right sided abdominal pain and right flank pain that is typically improved with oxycodone, however she also now has diffuse lower abdominal pain as well. Denies fevers/chills, lightheadedness, chest pain, shortness of breath. She does have a sore throat from vomiting. Her last BM was 2 days ago and she reports no passing of flatus today either. Her labs showed a eukocytosis of 16k and thrombocytosis in the 500s, but FTs and lipase are all normal. Lytes and renal function ok as well. She went in to see her Oncologist and received 2L IVFs as well as IV steroids. But the oncologist was concerned about the degree of N/V and sent her in for admission for further workup. After admission, a CT scan here showed a distal SBO and possible stones in the small bowel or a gallstone ileus. It also showed a possible gallbladder fistula into the duodenum. Allergies Allergy/AdvReac Type Severity Reaction Status Date / Time Penicillins Allergy Intermediate Hives Verified 12/10/18 07:08 Home Medications Home Medications Medication Instructions Recorded Confirmed Type atorvastatin 40 mg PO QPM 10/22/18 12/13/18 History clopidogrel 75 mg PO QAM 10/22/18 12/13/18 History hydrochlorothiazide 12.5 mg PO QAM 10/22/18 12/13/18 History omeprazole 20 mg PO QAM 11/12/18 12/13/18 History ondansetron 4 mg PO Q8 PRN 11/12/18 12/13/18 History oxycodone 5 mg PO Q4 PRN 11/12/18 12/13/18 History Past Med/Surg History Medical History Carotid stenosis Gallbladder malignant neoplasm Anxiety Cancer gallbladder Cardiac murmur no problems, 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 no neurologist, follows with PCP and Dr Lezama Surgical History H/O carotid endarterectomy left History of ERCP History of appendectomy History of bilateral tubal ligation History of colonoscopy History of discectomy cervical area (unsure of levels). Full ROM. History of esophagogastroduodenoscopy (EGD) History of tonsillectomy Family History Mother FHx: pancreatic cancer Uncle FHx: lung cancer Father No problems noted. Grandfather (Paternal) Family history of diabetes mellitus Social History Preferred Language: Vietnamese Communication Ability: Effective Superannuation Clerk Required: No Beliefs That Will Affect Care: None Current Living Situation: Spouse Other Information That Helps Us Care for You: No Feels Safe at Home: Yes Safety Concerns: Feels Safe At This Time Smoking Status: Former smoker Tobacco Type: cigarettes ; Second Hand Exposure: Yes ; Hx Alcohol Use: No Hx Substance Use: No Review of Systems Review of Systems: All systems reviewed & are unremarkable except as noted in HPI & below Physical Exam Constitutional: WD/WN, vitals as above Eyes: PERRL, conjunctivae normal, anicteric sclerae ENMT: external ear and nose normal, oropharynx normal Neck: trachea midline, no thyromegaly Respiratory: normal respiratory effort, lungs clear to auscultation Cardiovascular: RRR, no murmur, no edema Gastrointestinal (Abdomen): Inspection/Auscultation: abdomen normal to inspection, + abdomen distended (mild) and + hypoactive bowel sounds Percussion/Palpation: + abdomen tender (+TTP diffusely but moreso RUQ) and abdomen soft; no guarding and abdomen not rigid Musculoskeletal: Extremities: extremities normal to inspection; no cyanosis and no clubbing Skin: no rashes, warm and dry Neurologic: moves all extremities and awake; no focal motor deficits Psychiatric: A+Ox3, euthymic affect Results & Data Laboratory Results 12/13/18 Range/Units 18:05 Lipase 42 L (73-393) U/L Labs from Oncology reviewed WBC 16k Hgb 12.0 Plts 577 LFTs normal, 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 CT DOSE: 292.35 mGy.cm FINDINGS: Lower chest: There is interval development of a trace left pleural effusion and small right pleural effusion with associated right basilar compressive atelectatic change. Liver: No focal hepatic masses are visualized. There is an indwelling biliary enteric stent. There are a few droplets of pneumobilia indicating stent patency. Gallbladder: There is an abnormal thick-walled gallbladder with surrounding peritoneal nodularity. The gallbladder contains calculi. The findings are consistent with the patient's known gallbladder carcinoma. There is a possible fistula with adjacent duodenum. There is apparent decrease in the volume of gallstones when compared the prior study. Spleen: Normal in size and attenuation. Pancreas: Unremarkable. Adrenal glands: There is a 19 mm left adrenal gland nodule, similar to the preceding study. Kidneys: There is symmetric renal cortical enhancement. The kidneys are normal in size without hydronephrosis. Bowel: There are multiple dilated fluid-filled small bowel loops. The distal ileum is of normal caliber. The findings are indicative of a small bowel obstruction. There are nonspecific calcific densities within a lower pelvic small bowel loop. This could represent an obstruction from gallstones which have eroded into bowel (gallstone ileus). Peritoneum: There is low volume ascites. There is no free intraperitoneal air. There is right upper quadrant peritoneal nodularity suspicious for carcinomatosis. Vasculature: The abdominal aorta is normal in course and caliber. Adenopathy: None. Pelvic viscera: The bladder, and pelvic viscera are unremarkable. Skeletal structures: No destructive osseous lesions are seen. IMPRESSION: 1. Interval development of a distal small bowel obstruction 2. Abnormal gallbladder, consistent with the clinical history of a gallbladder carcinoma. 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 There are decreased gallstones within the gallbladder lumen when compared the preceding study. There are distal small bowel calcifications, which could represent obstructing gallstones within the ileum (gallstone ileus). 3. Pneumobilia. Indwelling biliary enteric stent. No significant ductal dilatation 4. Peritoneal nodularity suspicious for carcinomatosis 5. Low volume ascites 6. Small right pleural effusion 7. Left adrenal nodules Code Status & VTE Plan Code Status DNR/DNI VTE Prophylaxis Plan VTE Prophylaxis will be ordered: Yes PG Care Time/CCT Total # of Minutes Spent Total Time Spent with Patient: Total time spent is greater than 50% in coordination of care (as documented) at patient's floor/unit and/or counseling patient:
[2018-12-13] MEDS: PATIENT'S HEIGHT AND/OR WEIGHT NEEDED SCH ×3 (18:30→20:32)
[2018-12-13] MEDS ORDERED: IOVERSOL 100ml IV PRN (18:31)
[2018-12-13] MEDS: ONDANSETRON INJ 2 MG/ML 2 ML VIAL IV PRN (18:44)
[2018-12-13] MEDS: MoRPHine SULFATE 2 MG/ML CARP IV PRN ×2 (18:44→22:18)
[2018-12-13] MEDS: NSS + 20MEQ KCL 20 MEQ/1,000 ML BAG IV SCH (18:45)
--- NOTE | 2018-12-13 18:55 | CT Scan Report ---
CT abd pelvis IV con only CLINICAL HISTORY: gallbladder CA,intractable vomiting,abdominal pain COMPARISON STUDY: Gallbladder ultrasound dated 11/12/2018, CT scan of the abdomen pelvis dated 019 TECHNIQUE: The patient was scanned in a dynamic helical fashion during intravenous administration of 95 cc of Optiray 320 A dose lowering technique was utilized adhering to the principles of ALARA. CT DOSE: 292.35 mGy.cm FINDINGS: Lower chest: There is interval development of a trace left pleural effusion and small right pleural e ffusion with associated right basilar compressive atelectatic change. Liver: No focal hepatic masses are visualized. There is an indwelling biliary enteric stent. There ar e a few droplets of pneumobilia indicating stent patency. Gallbladder: There is an abnormal thick-walled gallbladder with surrounding peritoneal nodularity. Th e gallbladder contains calculi. The findings are consistent with the patient's known gallbladder carc inoma. There is a possible fistula with adjacent duodenum. There is apparent decrease in the volume o f gallstones when compared the prior study. Spleen: Normal in size and attenuation. Pancreas: Unremarkable. Adrenal glands: There is a 19 mm left adrenal gland nodule, similar to the preceding study. Kidneys: There is symmetric renal cortical enhancement. The kidneys are normal in size without hydron ephrosis. Bowel: There are multiple dilated fluid-filled small bowel loops. The distal ileum is of normal calib er. The findings are indicative of a small bowel obstruction. There are nonspecific calcific densitie s within a lower pelvic small bowel loop. This could represent an obstruction from gallstones which h ave eroded into bowel (gallstone ileus). Peritoneum: There is low volume ascites. There is no free intraperitoneal air. There is right upper q uadrant peritoneal nodularity suspicious for carcinomatosis. Vasculature: The abdominal aorta is normal in course and caliber. Adenopathy: None. Pelvic viscera: The bladder, and pelvic viscera are unremarkable. Skeletal structures: No destructive osseous lesions are seen. IMPRESSION: 1. Interval development of a distal small bowel obstruction 2. Abnormal gallbladder, consistent with the clinical history of a gallbladder carcinoma. 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 There are decreased gallstones within the gallbl adder lumen when compared the preceding study. There are distal small bowel calcifications, which cou ld represent obstructing gallstones within the ileum (gallstone ileus). 3. Pneumobilia. Indwelling biliary enteric stent. No significant ductal dilatation 4. Peritoneal nodularity suspicious for carcinomatosis 5. Low volume ascites 6. Small right pleural effusion 7. Left adrenal nodules Electronically signed by: Anirudh Cedillo M.D. 12/13/2018 6:53 PM
[2018-12-13] MEDS: HydrALAZINE HCL 20 MG/ML VIAL IV PRN (19:19)
[2018-12-13] MEDS: FAMOTIDINE 20 MG in SYRINGE 3 ML IV SCH (20:28)
[2018-12-13] MEDS ORDERED: Nursing to Pharmacy Communication ONE (21:22)
--- NOTE | 2018-12-13 21:23 | XRay Report ---
XR chest 1V portable CLINICAL HISTORY: Chest x-ray status post nasogastric tube placement COMPARISON STUDY: 10/22/2018 FINDINGS: There is a right-sided A-Port catheter, the tip of which projects over the superior vena ca va. There is no pneumothorax. There has been interval placement of nasogastric tube the tip of which is located within the stomach. The heart is normal in size. There are right lower lobe airspace opaci ties. Clinical correlation regards to a pneumonitis is recommended. There is mild central vascular pr ominence.[ IMPRESSION: 1. Interval placement of a nasogastric tube, the tip of which is located within the stomach 2. Nonspecific right lower lung zone airspace opacities Electronically signed by: Anirudh Cedillo M.D. 12/13/2018 9:21 PM
[2018-12-14] MEDS: MoRPHine SULFATE 2 MG/ML CARP IV PRN ×4 (01:57→11:24)
[2018-12-14] MEDS: ONDANSETRON INJ 2 MG/ML 2 ML VIAL IV PRN ×2 (02:11→11:24)
[2018-12-14] MEDS: NSS + 20MEQ KCL 20 MEQ/1,000 ML BAG IV SCH ×3 (03:00→19:26)
[2018-12-14 07:08] LABS: Hematocrit (blood only) 34.1 % (37-47); Immature Granulocytes # (auto) 0.05 K/uL (0.00-0.02); Immature Granulocytes % (auto) 0.4 %; Lymphocytes # (auto) 1.88 K/uL (1.2-3.4); Lymphocytes % (auto) 13.5 %; Mean Corpuscular Hemoglobin 28.7 pg (25-34); Mean Corpuscular Hgb Conc 32.3 g/dL (32-36); Mean Platelet Volume 8.7 fL (7.4-10.4); Monocytes # (auto) 0.27 K/uL (0.11-0.59); Monocytes % (auto) 1.9 %; Neutrophils # (auto) 11.73 K/uL (1.4-6.5); Neutrophils % (auto) 84.2 %; Platelet Count 447 K/uL (130-400); RDW Coefficient of Variation 15.6 % (11.5-14.5); RDW Standard Deviation 50.4 fL (36.4-46.3); Red Blood Count 3.83 M/uL (4.2-5.4); White Blood Count 13.93 K/uL (4.8-10.8)
[2018-12-14] MEDS: HydrALAZINE HCL 20 MG/ML VIAL IV PRN (07:25)
[2018-12-14] MEDS: FAMOTIDINE 20 MG in SYRINGE 3 ML IV SCH ×2 (07:26→20:38)
[2018-12-14 07:56] LABS: Albumin Level 2.1 gm/dl (3.4-5.0); BUN Creatinine Ratio 48.3 (10-20); Calcium 8.4 mg/dl (8.5-10.1); Creatinine Clr Calc Pharmacy 86.4 ml/min; Est GFR (African American) 114.7; Est GFR (Non-African American) 98.9
[2018-12-14 07:58] LABS: Bilirubin Direct 0.3 mg/dl (0-0.2); Bilirubin,Total 0.6 mg/dl (0.2-1); Phosphorus 2.8 mg/dl (2.5-4.9)
[2018-12-14] MEDS ORDERED: CLOPIDOGREL BISULFATE 75 MG TAB PO SCH (09:00)
[2018-12-14] MEDS ORDERED: PANTOprazole 40 MG TAB PO SCH (09:00)
--- NOTE | 2018-12-14 15:32 | Discharge Summary ---
Date of Service December 14, 2018 Admission HPI Per Admitting Provider This patient is a 68 yo female with a h/o HTN, hyperlipidemia, BERTO s/p left CEA, anxiety/depression, and recent diagnosis of poorly differentiated gallbladder carcinoma, who [facility] for intractable nausea/vomiting and diffuse abdominal pain. SHe reports she had one episode of vomiting yesterday before receiving her first chemotherapy treatment. SHe was able to tolerate the chemotherapy and went home and ate dinner. She then woke up this AM and has been vomiting ever since. The vomit is nonbloody, no coffee ground emesis. It is green-brown in color. SHe has her usual right sided abdominal pain and right flank pain that is typically improved with oxycodone, however she also now has diffuse lower abdominal pain as well. Denies fevers/chills, lightheadedness, chest pain, shortness of breath. She does have a sore throat from vomiting. Her last BM was 2 days ago and she reports no passing of flatus today either. Her labs showed a eukocytosis of 16k and thrombocytosis in the 500s, but FTs and lipase are all normal. Lytes and renal function ok as well. She went in to see her Oncologist and received 2L IVFs as well as IV steroids. But the oncologist was concerned about the degree of N/V and sent her in for admission for further workup. After admission, a CT scan here showed a distal SBO and possible stones in the small bowel or a gallstone ileus. It also showed a possible gallbladder fistula into the duodenum. Principal Diagnosis Small bowel obstruction, gallstone ileus suspected, gallbladder cancer Discharge Exam Constitutional WD/WN, vitals as above Eyes + anicteric sclerae ENMT external ear and nose normal, oropharynx normal Neck trachea midline, no thyromegaly Respiratory normal respiratory effort, lungs clear to auscultation Cardiovascular RRR, no murmur, no edema Gastrointestinal (Abdomen) Inspection/Auscultation: abdomen normal to inspection, + abdomen distended (mild) and + hypoactive bowel sounds Percussion/Palpation: + abdomen tender (+TTP diffusely but moreso RUQ but less than yesterday) and abdomen soft; no guarding and abdomen not rigid Musculoskeletal Extremities: extremities normal to inspection; no cyanosis and no clubbing Skin no rashes, warm and dry Neurologic moves all extremities and awake; no focal motor deficits Psychiatric A+Ox3, euthymic affect Discharge Data Allergies Allergy/AdvReac Type Severity Reaction Status Date / Time Penicillins Allergy Intermediate Hives Verified 12/10/18 07:08 Consultations None Ordered Studies 12/13/18 16:58 CT abd pelvis IV con only Urgent Hospital Course (1) Intractable nausea and vomiting: Had one episode of vomiting prior to chemo the day prior to admission; then developed intractable N/V since receiving chemotherapy for first time on 12/12 Emesis Nonbloody Not passing flatus, last BM 12/11 LFTs all normal, so not likely recurrent biliary obstruction CT abd/pel confirmed SBO distally, possible gallstone ileus, and possible fistula between GB and duodenum WBC count high but could be stress response to vomiting and SBO. Is afebrile and WBC count trending downward to 13k NGT draining bilious fluid, approx 1400mL out in 24 hours -continue Zofran, Compazine prn -continue IVFs with KCl -follow BMP and replace lytes as needed-none needed -continue IV Pepcid 20mg bid -keep NPO -continue NGT to LIS Discussed case with SUrgery here--> recommends calling [facility] where she had all her other surgeries and care to see if needs to be transferred -She was accepted by Dr. Borges at [facility], but still awaiting bed availability--> discussed her care again with [facility] Surgeon on phone 12/14 and advised to continue current treatment as long as no peritonitis (2) Small bowel obstruction: as above (3) Abdominal pain: secondary to known GB malignancy and now also with SBO as above -IV morphine prn--> increased to 3mg IV q3 hr -add IV Tylenol prn (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, 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 however these biopsies came back negative for malignancy -started chemotherapy 12/12 -poor prognosis -pain control (5) Hypertension: hypertensive urgency secondary to pain and not taking usual meds--> BP 199/74 on admission an dnow remains high at times but improved from previous -holding po HCTZ from home -continue IV hydralazine prn (6) Hyperlipidemia: hold home statin while NPO (7) Anxiety: no longer taking her Celexa -controlled (8) Depression: controlled as above, not currently on SSRI anymore (9) Carotid stenosis: -holding home Plavix and statin is s/p Left CEA and also has carotid stent (10) History of biliary stent insertion: in 11/2018 for obstructive jaundice (11) DVT prophylaxis: SCDs only in case of need for procedure Dispo-transfer to [facility] for Surgical Oncology eval for SBO when bed available DNR/DNI as discussed with patient Total Time Total Time Spent Total Time Spent (In Minutes): >30 min Total Time Includes: Examination of the Patient, Discharge Planning, Medication Reconciliation and Communication With Other Providers ([facility]) Discharge Plan Discharge Items Patient Disposition: Transfer Acute Care Hospital Reason For Visit: INTRACTABLE NAUSEA,VOMITING Discharge Diagnosis: Small bowel obstruction, gallbladder cancer Condition on Discharge: Fair Activity: As commented below Lifting: None Exercise/Sports: Rest today Non-emergency contact: Primary Care Provider and Surgeon Call non-emergency contact if: you have any medication questions and your pain is not controlled Follow-up/Referrals: Alona Honeycutt MD [Primary Care Provider] - Addtl Attending Provider Instructions: Transferred to [facility] Pending Studies at Discharge: No Stand-Alone Forms: [facility] Skilled Items Patient informed of condition?: Yes DNR: Yes Discharge Level of Care: Other Communicable Disease: No Discharge Prognosis: Stable Lines: Peripheral IV Urinary Catheter: No Medications and DC Order Prescriptions: Discontinued atorvastatin 40 mg tablet 40 mg PO QPM RF: 0 clopidogrel 75 mg tablet 75 mg PO QAM RF: 0 hydrochlorothiazide 12.5 mg tablet 12.5 mg PO QAM RF: 0 oxycodone 5 mg capsule 5 mg PO Q4 PRN (Reason: Pain) RF: 0 omeprazole 20 mg capsule,delayed release(DR/EC) 20 mg PO QAM RF: 0 ondansetron 4 mg tablet,disintegrating 4 mg PO Q8 PRN (Reason: Nausea) RF: 0 Discharge Orders: Discharge Order (Routine); Ordered 12/14/18 Ordered By: Eileen Walsh Admission Data Admit Date/Time: 12/13/18 16:58 Attending Provider: Eileen Walsh Admit Provider: Eileen Walsh Primary Care Provider: Alona Honeycutt
[2018-12-14] MEDS: ACETAMINOPHEN 1,000 MG/100 ML VIAL IV PRN (16:10)
[2018-12-14] MEDS: MoRPHine SULFATE 4 MG/ML 1 ML CARP\\VIAL IV PRN ×2 (16:10→19:21)
[2018-12-15] MEDS: MoRPHine SULFATE 4 MG/ML 1 ML CARP\\VIAL IV PRN ×4 (00:45→14:25)
[2018-12-15] MEDS: NSS + 20MEQ KCL 20 MEQ/1,000 ML BAG IV SCH ×3 (03:34→18:37)
[2018-12-15] MEDS: ACETAMINOPHEN 1,000 MG/100 ML VIAL IV PRN ×2 (03:36→19:33)
[2018-12-15] MEDS: ONDANSETRON INJ 2 MG/ML 2 ML VIAL IV PRN (06:04)
[2018-12-15 06:14] LABS: Eosinophils # (auto) 0.01 K/uL (0-0.5); Eosinophils % (auto) 0.1 %; Hematocrit (blood only) 33.1 % (37-47); Hemoglobin 10.8 g/dL (12.0-16.0); Immature Granulocytes # (auto) 0.02 K/uL (0.00-0.02); Immature Granulocytes % (auto) 0.1 %; Lymphocytes # (auto) 2.84 K/uL (1.2-3.4); Lymphocytes % (auto) 20.7 %; Mean Corpuscular Hemoglobin 29.3 pg (25-34); Mean Corpuscular Hgb Conc 32.6 g/dL (32-36); Mean Corpuscular Volume 89.7 fL (80-100); Mean Platelet Volume 8.9 fL (7.4-10.4); Monocytes # (auto) 0.06 K/uL (0.11-0.59); Monocytes % (auto) 0.4 %; Neutrophils # (auto) 10.78 K/uL (1.4-6.5); Neutrophils % (auto) 78.7 %; Platelet Count 436 K/uL (130-400); RDW Coefficient of Variation 15.4 % (11.5-14.5); RDW Standard Deviation 50.7 fL (36.4-46.3); Red Blood Count 3.69 M/uL (4.2-5.4); White Blood Count 13.71 K/uL (4.8-10.8)
[2018-12-15 06:49] LABS: BUN Creatinine Ratio 39.5 (10-20); Creatinine Clr Calc Pharmacy 97.4 ml/min; Est GFR (African American) 119.3; Est GFR (Non-African American) 102.9; Magnesium 1.9 mg/dl (1.8-2.4); Potassium 4.3 mmol/L (3.5-5.1)
[2018-12-15 06:56] LABS: Albumin Globulin Ratio 0.5 (0.9-2); Bilirubin,Total 0.6 mg/dl (0.2-1); Globulin 4.2 gm/dl (2.5-4.0); Phosphorus 2.2 mg/dl (2.5-4.9); Total Protein 6.2 gm/dl (6.4-8.2)
[2018-12-15] MEDS: FAMOTIDINE 20 MG in SYRINGE 3 ML IV SCH ×2 (10:49→21:05)
[2018-12-15] MEDS ORDERED: SODIUM PHOSPHATE 3 MMOL/1 ML INFUSION IV STA (12:10)
[2018-12-15] MEDS ORDERED: SODIUM PHOSPHATE 15 MMOL in SODIUM CHLORIDE 0.9% 250 ML IV ONE (12:30)
--- NOTE | 2018-12-15 13:31 | Surgery Consultation ---
Date of Consultation December 15, 2018 History of Present Illness Attending Physician: Eileen Walsh MD Allergies Allergy/AdvReac Type Severity Reaction Status Date / Time Penicillins Allergy Intermediate Hives Verified 12/10/18 07:08 Home Medications Home Medications Medication Instructions Recorded Confirmed Type atorvastatin 40 mg PO QPM 10/22/18 12/13/18 History clopidogrel 75 mg PO QAM 10/22/18 12/13/18 History hydrochlorothiazide 12.5 mg PO QAM 10/22/18 12/13/18 History omeprazole 20 mg PO QAM 11/12/18 12/13/18 History ondansetron 4 mg PO Q8 PRN 11/12/18 12/13/18 History oxycodone 5 mg PO Q4 PRN 11/12/18 12/13/18 History Patient History Medical History Carotid stenosis Gallbladder malignant neoplasm Anxiety Cancer gallbladder Cardiac murmur no problems, 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 no neurologist, follows with PCP and Dr Lezama Surgical History H/O carotid endarterectomy left History of ERCP History of appendectomy History of bilateral tubal ligation History of colonoscopy History of discectomy cervical area (unsure of levels). Full ROM. History of esophagogastroduodenoscopy (EGD) History of tonsillectomy Family History Mother FHx: pancreatic cancer Uncle FHx: lung cancer Father No problems noted. 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 Beliefs That Will Affect Care: None Current Living Situation: Spouse Other Information That Helps Us Care for You: No Feels Safe at Home: Yes Safety Concerns: Feels Safe At This Time Smoking Status: Former smoker Tobacco Type: cigarettes ; Second Hand Exposure: Yes ; Hx Alcohol Use: No Hx Substance Use: No Results & Data Vital Signs (Past 12 Hours) Vital Signs Temp Pulse Resp BP BP Pulse Ox 12/15/18 07:26 36.8 C 83 18 159/69 H 93 12/15/18 06:33 169/77 H 178/[address] abd pelvis IV con only CLINICAL HISTORY: gallbladder CA,intractable vomiting,abdominal pain COMPARISON STUDY: Gallbladder ultrasound dated 11/12/2018, CT scan of the abdomen pelvis dated 10/22/2018 TECHNIQUE: The patient was scanned in a dynamic helical fashion during intravenous administration of 95 cc of Optiray 320 A dose lowering technique was utilized adhering to the principles of ALARA. CT DOSE: 292.35 mGy.cm FINDINGS: Lower chest: There is interval development of a trace left pleural effusion and small right pleural effusion with associated right basilar compressive atelectatic change. Liver: No focal hepatic masses are visualized. There is an indwelling biliary enteric stent. There are a few droplets of pneumobilia indicating stent patency. Gallbladder: There is an abnormal thick-walled gallbladder with surrounding peritoneal nodularity. The gallbladder contains calculi. The findings are consistent with the patient's known gallbladder carcinoma. There is a possible fistula with adjacent duodenum. There is apparent decrease in the volume of gallstones when compared the prior study. Spleen: Normal in size and attenuation. Pancreas: Unremarkable. Adrenal glands: There is a 19 mm left adrenal gland nodule, similar to the preceding study. Kidneys: There is symmetric renal cortical enhancement. The kidneys are normal in size without hydronephrosis. Bowel: There are multiple dilated fluid-filled small bowel loops. The distal ileum is of normal caliber. The findings are indicative of a small bowel obstruction. There are nonspecific calcific densities within a lower pelvic small bowel loop. This could represent an obstruction from gallstones which have eroded into bowel (gallstone ileus). Peritoneum: There is low volume ascites. There is no free intraperitoneal air. There is right upper quadrant peritoneal nodularity suspicious for carcinomatosis. Vasculature: The abdominal aorta is normal in course and caliber. Adenopathy: None. Pelvic viscera: The bladder, and pelvic viscera are unremarkable. Skeletal structures: No destructive osseous lesions are seen. IMPRESSION: 1. Interval development of a distal small bowel obstruction 2. Abnormal gallbladder, consistent with the clinical history of a gallbladder carcinoma. 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 There are decreased gallstones within the gallbladder lumen when compared the preceding study. There are distal small bowel calcifications, which could represent obstructing gallstones within the ileum (gallstone ileus). 3. Pneumobilia. Indwelling biliary enteric stent. No significant ductal dilatation 4. Peritoneal nodularity suspicious for carcinomatosis 5. Low volume ascites 6. Small right pleural effusion 7. Left adrenal nodules Electronically signed by: Anirudh Cedillo M.D. 12/13/2018 6:53 PM PG Care Time/CCT Total # of Minutes Spent Total Time Spent with Patient: Total time spent is greater than 50% in coordination of care (as documented) at patient's floor/unit and/or counseling patient:
--- NOTE | 2018-12-15 13:39 | XRay Report ---
XR abdomen 2V w PA chest CLINICAL HISTORY: Small bowel obstruction. Worsening abdominal pain. COMPARISON STUDY: 12/13/2018 FINDINGS: There is a right-sided A-Port catheter. There are suspected small pleural effusions with ba silar atelectatic change. There is a nasogastric tube positioned with its tip at the mid esophageal l evel. Erect and supine views the abdomen demonstrate dilated central abdominal small bowel loops. The re is a paucity of colonic gas. The findings are indicative of a small bowel obstruction. There is a biliary enteric stent visualized in the right upper quadrant. IMPRESSION: 1. Small bowel obstructive pattern 2. Nasogastric tube positioned with its tip at the mid esophageal level.. Electronically signed by: Anirudh Cedillo M.D. 12/15/2018 1:36 PM
--- NOTE | 2018-12-15 14:04 | Surgery Consultation ---
Date of Consultation December 15, 2018 Assessment & Plan (1) Small bowel obstruction: The patient radiographically has images consistent with a gallstone ileus she has had no previous abdominal surgery she has no hernias and this is likely the source of obstruction therefore I recommended exploratory lap possible bowel resection and relieve the obstructing lesion This was explained to the patient and her daughter and they would like to proceed accordingly there tired her waiting not know when bed would be available on her she and certainly she is not improving Risk and complication of the surgery were explained to her including the fact that we would not do anything with 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 Walsh for Macrina santamaria who has a small bowel obstruction apparently had been admitted about 48 hours or so ago with the apparent decision that had been made to transfer to [place] but according to the discussion there be no beds available for time the patient still has a significant abdominal discomfort. 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 with a past history as of the November 25 of carcinoma the gallbladder Attending Physician: Eileen Walsh MD Allergies Allergy/AdvReac Type Severity Reaction Status Date / Time Penicillins Allergy Intermediate Hives Verified 12/10/18 07:08 Home Medications Home Medications Medication Instructions Recorded Confirmed Type atorvastatin 40 mg PO QPM 10/22/18 12/13/18 History clopidogrel 75 mg PO QAM 10/22/18 12/13/18 History hydrochlorothiazide 12.5 mg PO QAM 10/22/18 12/13/18 History omeprazole 20 mg PO QAM 11/12/18 12/13/18 History ondansetron 4 mg PO Q8 PRN 11/12/18 12/13/18 History oxycodone 5 mg PO Q4 PRN 11/12/18 12/13/18 History Patient History Medical History Carotid stenosis Bowel obstruction Bowel obstruction Anxiety Cancer gallbladder Cardiac murmur no problems, 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 no neurologist, follows with PCP and Dr Lezama Surgical History H/O carotid endarterectomy left History of ERCP History of appendectomy History of bilateral tubal ligation History of colonoscopy History of discectomy cervical area (unsure of levels). Full ROM. History of esophagogastroduodenoscopy (EGD) History of tonsillectomy Family History Mother FHx: pancreatic cancer Uncle FHx: lung cancer Father No problems noted. 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 Beliefs That Will Affect Care: None Current Living Situation: Spouse Other Information That Helps Us Care for You: No Feels Safe at Home: Yes Safety Concerns: Feels Safe At This Time Smoking Status: Former smoker Tobacco Type: cigarettes ; Second Hand Exposure: Yes ; Hx Alcohol Use: No Hx Substance Use: No Review of Systems Review of Systems: All systems reviewed & are unremarkable except as noted in HPI & below Physical Exam Physical Exam: Patient is alert NG tube in place draining approximately 700 cc dark bilious content The daughters at the bedside the patient is uncomfortable with some abdominal pain She appears to be well-hydrated cervical area free of any lymphadenopathy Respiratory: normal respiratory effort Cardiovascular: RRR, no murmur, no edema Gastrointestinal (Abdomen): Abdomen is distended generalized guarding no appreciable hernias Results & Data Vital Signs (Past 12 Hours) Vital Signs Temp Pulse Resp BP BP Pulse Ox 12/15/18 07:26 36.8 C 83 18 159/69 H 93 12/15/18 06:33 169/77 H 178/72 H PG Care Time/CCT Total # of Minutes Spent Total Time Spent with Patient: Total time spent is greater than 50% in coordination of care (as documented) at patient's floor/unit and/or counseling patient:
[2018-12-15] MEDS ORDERED: BUPIVACAINE 0.5 % 5 MG/1 ML MPF 30ML VIAL ONE (14:06)
[2018-12-15] MEDS: HEPARIN 100 UNIT/ML 5ML FLUSH FLUSH PRN (14:36)
[2018-12-15] MEDS ORDERED: LIDOCAINE HCL 2% 2 ML VIAL/AMP(20MG/ML) INFIL ONE (14:48)
[2018-12-15] MEDS ORDERED: ONDANSETRON INJ 2 MG/ML 2 ML VIAL ONE ×2 (14:48→16:15)
[2018-12-15] MEDS ORDERED: PROPOFOL IV EMULSION 10 MG/ML 20 ML VIAL IV ONE (14:48)
[2018-12-15] MEDS ORDERED: fentaNYL citrate 100 MCG/2 ML VIAL ONE (14:48)
[2018-12-15] MEDS ORDERED: ROCURONIUM BROMIDE 10 MG/ML 5 ML VIAL ONE (14:48)
--- NOTE | 2018-12-15 15:02 | XRay Report ---
XR chest 1V portable CLINICAL HISTORY: Nasogastric tube placement COMPARISON STUDY: Earlier today FINDINGS: The nasogastric tube has been advanced. The tip projects over the gastric cardia. There is a right-sided A-Port catheter present. Small pleural effusions are suspected with right basilar atele ctatic change.[ IMPRESSION: The nasogastric tube has been advanced. The tip now projects over the stomach. Electronically signed by: Anirudh Cedillo M.D. 12/15/2018 3:01 PM
--- NOTE | 2018-12-15 15:12 | Anesthesiology Consultation ---
Date of Service December 15, 2018 Assessment & Plan (1) Encounter for pre-operative examination: Chart Review Chart Review: Acceptable Risk for Surgery and Patient NOT seen in Pre Admission Testing Consults Requested none ASA ASA3 Proposed Anesthesia Anesthesia Type: General Risk / Benefits Reviewed With: PT / POA / Parent / Guardian, Accepts Plan and Informed Consent Obtained History Surgery Operation Date: 12/15/18 13:50 Proposed Procedures p Exploratory Laparotomy - Jim Bond MD Height/Weight Height: 5 ft 3 in Weight: 62.3 kg Allergies Allergy/AdvReac Type Severity Reaction Status Date / Time Penicillins Allergy Intermediate Hives Verified 12/10/18 07:08 Medications Home Medications Medication Instructions Recorded Confirmed Last Taken atorvastatin 40 mg PO QPM 10/22/18 12/13/18 12/09/18 08:30 clopidogrel 75 mg PO QAM 10/22/18 12/13/18 10/22/18 hydrochlorothiazide 12.5 mg PO QAM 10/22/18 12/13/18 12/09/18 08:30 omeprazole 20 mg PO QAM 11/12/18 12/13/18 12/09/18 08:30 ondansetron 4 mg PO Q8 PRN 11/12/18 12/13/18 12/07/18 oxycodone 5 mg PO Q4 PRN 11/12/18 12/13/18 12/10/18 05:00 Active Medications Generic Name Dose Route Start Last Admin Trade Name Freq PRN Reason Stop Dose Admin Heparin Sodium (Porcine) 5 ml 12/13/18 18:06 12/15/18 14:36 Heparin Sod 100 Unit/Ml Flush FLUSH 01/12/19 18:14 5 ml PRN PRN Administration Flush Hydralazine HCl 10 mg 12/13/18 17:11 12/14/18 07:25 Hydralazine Hcl IV 01/12/19 17:10 10 mg Q8H PRN Administration SBP>180 or DBP>110 Famotidine 20 mg/ Syringe 5 mls @ 2.5 mls/min 12/13/18 21:00 12/15/18 10:49 IV 01/12/19 20:59 2.5 mls/min BID GUSTABO Administration Potassium Chloride/Sodium Chloride 20 meq in 1,000 mls @ 125 mls/hr 12/13/18 17:30 12/15/18 12:13 Normal Saline W/20 Meq Kcl IV 01/12/19 17:29 125 mls/hr .Q8H GUSTABO Administration Acetaminophen 1,000 mg in 100 mls @ 400 mls/hr 12/14/18 15:32 12/15/18 04:15 Ofirmev IV 12/17/18 15:31 Infused Q8H PRN Infusion Pain Ioversol 93 ml 12/13/18 18:31 12/13/18 18:31 Optiray 320 100ml IV 12/17/18 18:30 1 ml ONCE PRN Administration Interaction Checking Morphine Sulfate 3 mg 12/14/18 15:32 12/15/18 14:25 Morphine Sulfate IV 12/27/18 16:57 3 mg Q2H PRN Administration Pain Ondansetron HCl 4 mg 12/13/18 16:58 12/15/18 06:04 Zofran IV 01/12/19 16:57 4 mg Q6H PRN Administration Nausea NPO Date Last Intake of Fluids: 12/12/18 Time Last Intake of Fluids: 18:00 Last Intake of Fluids Comment: ice chips Date Last Intake of Solids: 12/12/08 Time Last Intake of Solids: 18:00 Past Medical History Medical History Carotid stenosis Bowel obstruction Bowel obstruction Anxiety Cancer gallbladder Cardiac murmur no problems, 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 no neurologist, follows with PCP and Dr Lezama Exercise / Class Metabolic Activity III < 4 Walking/Shop/Light housework Negative for chest pain or shortness of breath. Past Family History Family History Mother FHx: pancreatic cancer Uncle FHx: lung cancer Father No problems noted. Grandfather (Paternal) Family history of diabetes mellitus Past Surgical History Surgical History H/O carotid endarterectomy left History of ERCP History of appendectomy History of bilateral tubal ligation History of colonoscopy History of discectomy cervical area (unsure of levels). Full ROM. History of esophagogastroduodenoscopy (EGD) History of tonsillectomy Past Anesthesia History No Hx of Anesthesia Complications History of PONV No Hx of PONV Social History Smoking Status: Former smoker tobacco type: cigarettes Hx Alcohol Use: No Alcohol type: wine alcohol intake frequency: holidays/special occasions only Hx Substance Use: No substance use type: does not use Review of Systems Positive for n/v Physical Exam Vital Signs Last Vital Signs Temp 36.8 C 12/15/18 07:26 Pulse 83 12/15/18 07:26 Resp 18 12/15/18 07:26 BP 159/69 H 12/15/18 07:26 Pulse Ox 93 12/15/18 07:26 Constitutional not obese ENMT Mouth: no TMJ abnormality and oral opening not small Thyromental Distance: > or= 3.5 Finger Breadths Mallampati Class: II NG tube in place Neck normal visual inspection; neck extension not limited Respiratory normal respiratory effort Auscultation: lungs clear to auscultation bilaterally Cardiovascular Rate/Rhythm: regular rate and regular rhythm Heart Sounds: + murmur Vessels: no carotid bruit Neurologic moves all extremities Psychiatric Orientation: alert and oriented x 3 Testing Laboratory Results 12/15/18 05:36 12/15/18 05:36 Electrocardiogram Date: 12/14/18 Findings: + NSR @ (86) Low voltage QRS, no significant change form 10/22/18 Chest X-Ray Date: 12/14/18 FINDINGS: The nasogastric tube has been advanced. The tip projects over the gastric cardia. There is a right-sided A-Port catheter present. Small pleural effusions are suspected with right basilar atelectatic change.[ IMPRESSION: The nasogastric tube has been advanced. The tip now projects over the stomach.
[2018-12-15] MEDS ORDERED: HYDROmorphone INJ 2 MG/ML SYR/VIAL ONE (15:51)
[2018-12-15] MEDS ORDERED: LIDOCAINE HCL/D5W 2000 MG/500 ML BAG IV ONE (15:56)
[2018-12-15] MEDS ORDERED: DEXAMETHASONE SOD INJ 4 MG/ML VIAL ONE (16:15)
[2018-12-15] MEDS ORDERED: cefOXitin 2,000 MG in DEXTROSE 5% 50 ML IV SCH (16:15)
[2018-12-15] MEDS ORDERED: SUCCINYLCHOLINE 100MG/5ML SYR ONE (16:15)
[2018-12-15] MEDS ORDERED: GLYCOPYRROLATE 0.2 MG/ML VIAL ONE (16:27)
[2018-12-15] MEDS ORDERED: NEOSTIGMINE METHYLSULFATE 5 MG/5 ML SYR ONE (16:27)
--- NOTE | 2018-12-15 16:29 | Post Operative Brief Note ---
PG Immediate Post Op with CF Date of Surgery December 15, 2018 Pre & Post Diagnosis Operation Date: 12/15/18 13:50 Pre-Op Diagnosis: INTRACTABLE NAUSEA,VOMITING Post-Op Diagnosis: Gallstone Ileus I identified the patient and participated in the time-out.: Yes Procedure Operation Date: 12/15/18 13:50 Actual Procedures p Exploratory Laparotomy, Removal of Gallstone obstruction(Not Applicable) - Jim Bond MD Surgeon Jim Bond MD Foley Artist nehemias cristina Estimated Blood Loss 5 Findings Consistent with Post-Op Diagnosis Specimens Specimen Description: Cytology: 1. peritoneal fluid Drains Bartlett Catheter and Cristian Drain
--- NOTE | 2018-12-15 16:46 | Operative Report ---
PG Post Operative Report Pre & Post Diagnosis Operation Date: 12/15/18 13:50 Pre-Op Diagnosis: INTRACTABLE NAUSEA,VOMITING Post-Op Diagnosis: Gallstone Ileus I identified the patient and participated in the time-out.: Yes Procedure Operation Date: 12/15/18 13:50 Actual Procedures p Exploratory Laparotomy, Removal of Gallstone obstruction(Not Applicable) - Jim Bond MD The patient was brought into the operating theater under general endotracheal anesthesia Bartlett catheter was inserted abdomen was prepped with Betadine solution properly draped preop antibiotics given a timeout was had patient identified this point we made an incision about 3 inches long extending above and below the right of the umbilicus deepened through subcutaneous tissue we opened the midline above the umbilicus and linea alba entered the abdomen very easily liberated met with a significant amount of peritoneal fluid which was slight bloody in nature by the time we were down the patient had approximately 1500 cc of fluid evacuated nonpurulent we opened the incision total we could see the dilated bowel grossly was not ischemic and appeared to be quite normal thickened and dilated we then identified the cecum which I was able to just elevated out of the right upper lower quadrant and worked proximally just by feel and actually could feel a very indurated area about 6 to 8 inches from the ileocecal valve that we easily brought out into the field along with the proximal small bowel which was dilated we extracted this mass which is about 3 cm so long viral centimeter I have thickened completely obstructing the small bowel we brought around in the wound put lap circumferentially around it placed intestinal clamp proximally and distally to avoid any spillage we then I opened that the dilated portion of the small bowel transversely once we entered the lumen there was thickened greenish inspissated bowel proximally then we gently milked the rest of the mass out which came out in total and I stated those dimensions and I mentioned at this point and then closed transversely the opening and we closed in 2 layers with interrupted 3-0 silk when we are finished was checked for patency appear to satisfactory return in intra-abdominal he at this point I took the above 10 cc of peritoneal fluid and would send it over to cytology we checked the omentum I do not feel any implants I slightly put my hand in the right upper quadrant and there I can feel what prescribe this probably hardened areas I did not dissect that I could not feel the NG tube although since the NG tube that she had in the release valve was broken anesthesia was placing it up. The wound was then closed with interrupted #1 PDS for the fascia we irrigated subcu quarter inch [place] was placed tension approximately distally with 3-0 silk and narda on the skin edge dressing was applied procedure was tolerated well by the patient estimated blood loss approximately 5 cc patient was taken recovery room in good condition addendumnehemias CERON was present throughout the procedure and help to retraction exposure and wound closure Surgeon Jim Bond MD Osteopathic Neurologist nehemias ceron Estimated Blood Loss 5 Findings Consistent with Post-Op Diagnosis Specimens gallstones Description of Procedure merda I attest to the content of the Intraoperative Record and any orders documented therein. Any exceptions are noted below.
[2018-12-15] MEDS ORDERED: ePHEDrine sulfate 50 MG/ML AMP IV PRN (16:59)
[2018-12-15] MEDS ORDERED: ONDANSETRON INJ 2 MG/ML 2 ML VIAL IV PRN (16:59)
[2018-12-15] MEDS ORDERED: fentaNYL citrate 100 MCG/2 ML VIAL IV PRN (16:59)
[2018-12-15] MEDS ORDERED: ATROPINE SULFATE 0.1 MG/ML 10ML SYR IV PRN (16:59)
[2018-12-15] MEDS ORDERED: HYDROmorphone INJ 1 MG/ML SYRINGE IV PRN (16:59)
--- NOTE | 2018-12-15 17:08 | XRay Report ---
XR chest 1V portable CLINICAL HISTORY: evaluate NGT placement SHORTNESS OF BREATH COMPARISON STUDY: 12/15/2018 FINDINGS: The cardiac and mediastinal contours remain stable. A nasogastric tube is visualized with i ts tip projected over the level of the gastric cardia. A right upper quadrant biliary stent is visual ized. There is a right-sided A-Port catheter. There is a suspected right pleural effusion. There are developing right lung airspace opacities. There is interval development of left basilar atelectasis/c onsolidation.[ IMPRESSION: 1. Nasogastric tube with its tip projected over the level of the gastric cardia 2. Small right pleural effusion with progressive right lung airspace opacities 3. Developing left basilar atelectasis/consolidation Electronically signed by: Anirudh Cedillo M.D. 12/15/2018 5:06 PM
--- NOTE | 2018-12-15 17:26 | Anesthesiology Progress Note ---
Date of Service December 15, 2018 Anesthesia Post Procedure Vital Signs Vital Signs: Temp Pulse Pulse Resp BP BP Pulse Ox 12/15/18 17:15 71 19 189/79 H 98 12/15/18 17:05 83 16 190/71 H 97 12/15/18 16:55 91 H 18 181/84 H 97 12/15/18 16:49 37.5 C 98 H 19 183/82 H 97 12/15/18 07:26 36.8 C 83 18 159/69 H 93 12/15/18 06:33 169/77 H 178/72 H 12/14/18 23:33 89 174/76 H 93 12/14/18 23:00 36.7 C 89 20 186/71 H 94 12/14/18 19:20 36.8 C 78 19 166/70 H 94 Pain Intensity Flank: Pain Intensity: 7 Transfer of Care Handoff Completed per policy Notes Mental Status: alert / awake / arousable and participated in evaluation Patient Amnestic to Procedure: Yes Nausea / Vomiting: adequately controlled Pain: adequately controlled Airway Patency, RR, SpO2: stable & adequate BP & HR: stable & adequate Hydration State: stable & adequate Anesthetic Complications: no major complications apparent and Pt Satisfied with anesthetic care Notes: Patient was hypertensive in PACU, but review of chart shows that her blood pressures are equivalent to her blood pressures since admission. OK to discharge from PACU at this time so that primary team can evaluate chcf treatment of her hypertension.
--- NOTE | 2018-12-15 17:50 | Hospitalist Progress Note ---
Date of Service December 15, 2018 Assessment & Plan (1) Intractable nausea and vomiting: Had one episode of vomiting prior to chemo the day prior to admission; then developed intractable N/V since receiving chemotherapy for first time on 12/12 Emesis Nonbloody Still not passing flatus, last BM 12/11 LFTs all normal, so was not likely recurrent biliary obstruction CT abd/pel confirmed SBO distally, possible gallstone ileus, and possible fistula between GB and duodenum WBC count high but could be stress response to vomiting and SBO. Is afebrile and WBC count trended downward to 13k NGT draining bilious fluid, however output low Suspect NGT out of place-repositioned as per RN Discussed case with SUrgery here upon admission--> recommends calling [facility] where she had all her other surgeries and care to see if needs to be transferred -She was accepted by Dr. Borges at [facility], but still awaiting bed availability x 2 days now--> discussed her care again with [facility] Surgeon on phone 12/14 and advised to continue current treatment as long as no peritonitis Consulted Surgery here on 12/15--> will now take to OR for bowel resection as [facility] has no bed available and having continued obstruction -continue Zofran, Compazine prn -continue IVFs with KCl -follow BMP and replace lytes as needed-phos today -continue IV Pepcid 20mg bid -keep NPO -continue NGT to LIS (2) Small bowel obstruction: as above (3) Abdominal pain: secondary to known GB malignancy and now also with SBO as above -IV morphine prn--> increased to 3mg IV q3 hr -continue IV Tylenol prn (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, 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 however these biopsies came back negative for malignancy -started chemotherapy 12/12 -poor prognosis -pain control (5) Hypertension: hypertensive urgency secondary to pain and not taking usual meds--> BP 199/74 on admission and now remains high at times but improved from previous -holding po HCTZ from home -continue IV hydralazine prn (6) Hyperlipidemia: hold home statin while NPO (7) Anxiety: no longer taking her Celexa -controlled (8) Depression: controlled as above, not currently on SSRI anymore (9) Carotid stenosis: -holding home Plavix and statin is s/p Left CEA and also has carotid stent (10) History of biliary stent insertion: in 11/2018 for obstructive jaundice (11) DVT prophylaxis: SCDs only for procedure Dispo-cancel transfer to [facility] for Surgical Oncology as having surgery here now DNR/DNI as discussed with patient Subjective Pt had worsening nausea, abd pain and distension today when I first saw her. There was really minimal output in NGT all morning. RN reported that the tape had come off from NGT and she pushed it back in a bit and thought it was properly positioned. We checked an abdomen xray which revealed NGT was in mid- esophagus. I also discussed her care with Surgery here as [facility] still had no beds available all day and was a slim chance there would be later today. SUrgery decided to take her to the OR. No flatus at all still. Making urine. Review of Systems Review of Systems: All systems reviewed & are unremarkable except as noted in HPI & below Physical Exam Constitutional: WD/WN, vitals as above Eyes: + anicteric sclerae ENMT: external ear and nose normal, oropharynx normal Neck: trachea midline, no thyromegaly Respiratory: normal respiratory effort, lungs clear to auscultation Cardiovascular: RRR, no murmur, no edema Gastrointestinal (Abdomen): Inspection/Auscultation: abdomen normal to inspection, + abdomen distended (moderate, more than previous) and + hypoactive bowel sounds Percussion/Palpation: + abdomen tender (+TTP diffusely and worse than previous); no guarding and abdomen not rigid NGT in place with minimal drainage Musculoskeletal: Extremities: extremities normal to inspection; no cyanosis and no clubbing Skin: no rashes, warm and dry Neurologic: moves all extremities and awake; no focal motor deficits Psychiatric: A+Ox3, euthymic affect Results & Data Vital Signs (Past 12 Hours) Vital Signs Temp Pulse Pulse Resp BP BP Pulse Ox 12/15/18 17:26 36.8 C 77 14 188/75 H 97 12/15/18 17:15 71 19 189/79 H 98 12/15/18 17:05 83 16 190/71 H 97 12/15/18 16:55 91 H 18 181/84 H 97 12/15/18 16:49 37.5 C 98 H 19 183/82 H 97 12/15/18 07:26 36.8 C 83 18 159/69 H 93 12/15/18 06:33 169/77 H 178/72 H Laboratory Results Labs reviewed Diagnostic Findings Abd series personally reviewed and agree with the following report: XR abdomen 2V w PA chest CLINICAL HISTORY: Small bowel obstruction. Worsening abdominal pain. COMPARISON STUDY: 12/13/2018 FINDINGS: There is a right-sided A-Port catheter. There are suspected small pleural effusions with basilar atelectatic change. There is a nasogastric tube positioned with its tip at the mid esophageal level. Erect and supine views the abdomen demonstrate dilated central abdominal small bowel loops. There is a paucity of colonic gas. The findings are indicative of a small bowel obstruction. There is a biliary enteric stent visualized in the right upper quadrant. IMPRESSION: 1. Small bowel obstructive pattern 2. Nasogastric tube positioned with its tip at the mid esophageal level.. PG Care Time/CCT Total # of Minutes Spent Total Time Spent with Patient: Total time spent is greater than 50% in coordination of care (as documented) at patient's floor/unit and/or counseling patient:
[2018-12-15] MEDS ORDERED: MoRPHine SULFATE 4 MG/ML 1 ML CARP\\VIAL IV PRN (17:58)
[2018-12-15] MEDS: LACTATED RINGER'S 1,000 ML IV SCH (18:03)
[2018-12-15] MEDS ORDERED: cefOXitin 2,000 MG in DEXTROSE 5% 50 ML IV ONE (22:00)
[2018-12-15] MEDS: MoRPHine SULFATE 2 MG/ML CARP IV PRN (23:35)
[2018-12-16] MEDS: LACTATED RINGER'S 1,000 ML IV SCH ×3 (02:33→20:00)
[2018-12-16] MEDS: ONDANSETRON INJ 2 MG/ML 2 ML VIAL IV PRN (02:45)
[2018-12-16] MEDS: MoRPHine SULFATE 2 MG/ML CARP IV PRN ×4 (02:45→15:53)
[2018-12-16] MEDS: ACETAMINOPHEN 1,000 MG/100 ML VIAL IV PRN (06:10)
[2018-12-16] MEDS: FAMOTIDINE 20 MG in SYRINGE 3 ML IV SCH ×2 (08:01→20:00)
[2018-12-16] MEDS: HEPARIN 100 UNIT/ML 5ML FLUSH FLUSH PRN ×2 (08:02→09:32)
[2018-12-16 08:07] LABS: Eosinophils # (auto) 0.02 K/uL (0-0.5); Eosinophils % (auto) 0.4 %; Hematocrit (blood only) 29.8 % (37-47); Hemoglobin 9.9 g/dL (12.0-16.0); Immature Granulocytes # (auto) 0.01 K/uL (0.00-0.02); Immature Granulocytes % (auto) 0.2 %; Lymphocytes # (auto) 1.82 K/uL (1.2-3.4); Lymphocytes % (auto) 34.6 %; Mean Corpuscular Hemoglobin 29.2 pg (25-34); Mean Corpuscular Hgb Conc 33.2 g/dL (32-36); Mean Corpuscular Volume 87.9 fL (80-100); Mean Platelet Volume 8.6 fL (7.4-10.4); Monocytes % (auto) 1.9 %; Neutrophils # (auto) 3.31 K/uL (1.4-6.5); Neutrophils % (auto) 62.9 %; Platelet Count 324 K/uL (130-400); RDW Coefficient of Variation 15.1 % (11.5-14.5); RDW Standard Deviation 48.4 fL (36.4-46.3); Red Blood Count 3.39 M/uL (4.2-5.4); White Blood Count 5.26 K/uL (4.8-10.8)
[2018-12-16 08:36] LABS: BUN Creatinine Ratio 34.2 (10-20); Calcium 8.1 mg/dl (8.5-10.1); Creatinine Clr Calc Pharmacy 114.4 ml/min; Est GFR (African American) 125.8; Est GFR (Non-African American) 108.5; Potassium 3.8 mmol/L (3.5-5.1)
[2018-12-16] MEDS: PROCHLORPERAZINE 10 MG in SYRINGE 8 ML IV PRN ×2 (09:16→20:08)
--- NOTE | 2018-12-16 09:16 | Surgery Progress Note ---
Date of Service December 16, 2018 Assessment & Plan (1) Small bowel obstruction: POD 1 ex lap, removal of gallstone obstruction seen with Dr. Bond d/c SAVANAH and vides can have sips change morphine to q1h Subjective c/o incisional pain Physical Exam Gastrointestinal (Abdomen): Inspection/Auscultation: + abdomen distended (less) and + abdominal surgical incision (some drainage from lane) Percussion/Palpation: abdomen soft Results & Data Vital Signs (Past 12 Hours) Vital Signs Temp Pulse Resp BP Pulse Ox 12/16/18 07:35 36.9 C 94 H 18 152/78 H 93 12/16/18 02:50 37.8 C H 106 H 20 165/68 H 93 12/15/18 23:05 36.8 C 92 H 18 162/65 H 93 PG Care Time/CCT Total # of Minutes Spent Total Time Spent with Patient: Total time spent is greater than 50% in coordination of care (as documented) at patient's floor/unit and/or counseling patient:
--- NOTE | 2018-12-16 11:41 | Hospitalist Progress Note ---
Date of Service December 16, 2018 Assessment & Plan (1) Intractable nausea and vomiting: Presented with intractable N/V and diffuse abdominal pain [facility] She had one episode of vomiting prior to chemo the day prior to admission; then developed intractable N/V since receiving chemotherapy for first time on 12/12 Emesis Nonbloody Was not passing flatus, and last BM 12/11 LFTs all normal, so was not likely recurrent biliary obstruction Upon admission, CT abd/pel confirmed SBO distally, possible gallstone ileus, and possible fistula between GB and duodenum With leukocytosis likely stress response to vomiting and SBO. Discussed case with Surgery here upon admission--> recommended calling [facility] where she had all her other surgeries and care to see if needs to be transferred -She was accepted by Dr. Borges at [facility] on 12/13, but as she was still awaiting bed availability x 2 days and condition was not improving on 12/15 --> Consulted Surgery here on 12/15--> took her to OR for bowel resection and relieved the confirmed gallstone obstruction in the bowel Much improved now POD#1 from small bowel resection Cristian drain removed, Tay out and voiding, NGT removed all on 12/16 Is afebrile, leukocytosis now resolved No flatus yet on POD#1 -continue pain control as needed -advanced diet to sips and chips -continue Zofran, Compazine prn -continue IVFs with KCl -follow BMP and replace lytes as needed -continue IV Pepcid 20mg bid -advance diet after bowel function returns -added incentive spirometry Greatly appreciate Surgery management here (2) Small bowel obstruction: as above (3) Abdominal pain: secondary to known GB malignancy and now also with SBO as above -pain control (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, 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 however these biopsies came back negative for malignancy at [facility] -started chemotherapy 12/12 -poor prognosis -pain control -of note, Surgeon here did not see or feel any evidence of metastatic disease during procedure, but notes he had a small incision to look through (5) Hypertension: hypertensive urgency secondary to pain and not taking usual meds--> BP 199/74 on admission and now remains high at times but improved from previous -continue holding po HCTZ from home -continue IV hydralazine prn -add on amlodipine 5mg daily -follow BPs (6) Hyperlipidemia: hold home statin while NPO (7) Anxiety: no longer taking her Celexa -controlled (8) Depression: controlled as above, not currently on SSRI anymore (9) Carotid stenosis: -holding home Plavix and statin is s/p Left CEA and also has carotid stent (10) History of biliary stent insertion: in 11/2018 for obstructive jaundice, placed at [facility] LFTs here all normal, no evidence of dysfunction of stent (11) DVT prophylaxis: SCDs only, consider adding on Lovenox tomorrow if ok with Surgery Encouraged ambulation today Dispo-no need to transfer to [facility] at this point Continued stay on Med/Surg floor, doing well Ambulates indepently, will return home at time of discharge DNR/DNI as discussed with patient Subjective Doing much better than yesterday. Only some mild incisional pain. No flatus yet, no nausea. Is urinating since Tay catheter out. No cough or SOB. Had NGT removed this AM and has had some ice chips. Review of Systems Review of Systems: All systems reviewed & are unremarkable except as noted in HPI & below (no chest pain, no lightheadedness) Physical Exam 2 Constitutional: WD/WN, vitals as above Eyes: + anicteric sclerae ENMT: external ear and nose normal, oropharynx normal Neck: trachea midline, no thyromegaly Respiratory: normal respiratory effort, lungs clear to auscultation Cardiovascular: RRR, no murmur, no edema Gastrointestinal (Abdomen): Inspection/Auscultation: + abdomen distended (mil d) and + hypoactive bowel sounds; + abdomen abnormal to inspection (midline incision with dressing in place c/d/i) Percussion/Palpation: abdomen soft; abdomen nontender, no guarding and abdomen not rigid Musculoskeletal: Extremities: extremities normal to inspection; no cyanosis and no clubbing Skin: no rashes, warm and dry Neurologic: moves all extremities and awake; no focal motor deficits Psychiatric: A+Ox3, euthymic affect Results & Data Vital Signs (Past 12 Hours) Vital Signs Temp Pulse Resp BP Pulse Ox 12/16/18 07:35 36.9 C 94 H 18 152/78 H 93 12/16/18 02:50 37.8 C H 106 H 20 165/68 H 93 Laboratory Results 12/16/18 12/16/18 Range/Units 07:53 07:53 WBC 5.26 (4.8-10.8) K/uL RBC 3.39 L (4.2-5.4) M/uL Hgb 9.9 L (12.0-16.0) g/dL Hct 29.8 L (37-47) % MCV 87.9 (80-100) fL MCH 29.2 (25-34) pg MCHC 33.2 (32-36) g/dL RDW Std Deviation 48.4 H (36.4-46.3) fL RDW Coeff of Arelen 15.1 H (11.5-14.5) % Plt Count 324 (130-400) K/uL MPV 8.6 (7.4-10.4) fL Immature Gran % (Auto) 0.2 % Neut % (Auto) 62.9 % Lymph % (Auto) 34.6 % [place] % (Auto) 1.9 % Eos % (Auto) 0.4 % Baso % (Auto) 0.0 % Immature Gran # (Auto) 0.01 (0.00-0.02) K/uL Neut # (Auto) 3.31 (1.4-6.5) K/uL Lymph # (Auto) 1.82 (1.2-3.4) K/uL [place] # (Auto) 0.10 L (0.11-0.59) K/uL Eos # (Auto) 0.02 (0-0.5) K/uL Baso # (Auto) 0.00 (0-0.2) K/uL Sodium 134 L (136-145) mmol/L Potassium 3.8 (3.5-5.1) mmol/L Chloride 102 (98-107) mmol/L Carbon Dioxide 24 (21-32) mmol/L Anion Gap 8.0 (3-11) BUN 14 (7-18) mg/dl Creatinine 0.40 L (0.6-1.2) mg/dl Est Cr Clr Drug Dosing 114.4 ml/min Est GFR ( Amer) 125.8 Est GFR (Non-Af Amer) 108.5 BUN/Creatinine Ratio 34.2 H (10-20) Glucose 92 (70-99) mg/dl Calcium 8.1 L (8.5-10.1) mg/dl PG Care Time/CCT Total # of Minutes Spent Total Time Spent with Patient: Total time spent is greater than 50% in coordination of care (as documented) at patient's floor/unit and/or counseling patient:
[2018-12-16] MEDS: MoRPHine SULFATE 4 MG/ML 1 ML CARP\\VIAL IV PRN (14:00)
--- NOTE | 2018-12-16 14:14 | Anesthesiology Progress Note ---
Date of Service December 16, 2018 Anesthesia Post Procedure Vital Signs Vital Signs: Temp Pulse Pulse Resp BP Pulse Ox 12/16/18 07:35 36.9 C 94 H 18 152/78 H 93 12/16/18 02:50 37.8 C H 106 H 20 165/68 H 93 12/15/18 23:05 36.8 C 92 H 18 162/65 H 93 12/15/18 19:45 37.0 C 72 17 151/66 H 98 12/15/18 18:45 36.7 C 80 17 173/72 H 95 12/15/18 17:26 36.8 C 77 14 188/75 H 97 12/15/18 17:15 71 19 189/79 H 98 12/15/18 17:05 83 16 190/71 H 97 12/15/18 16:55 91 H 18 181/84 H 97 12/15/18 16:49 37.5 C 98 H 19 183/82 H 97 Pain Intensity Flank: Pain Intensity: 7 Notes Mental Status: alert / awake / arousable and participated in evaluation Patient Amnestic to Procedure: Yes Nausea / Vomiting: adequately controlled Pain: adequately controlled Airway Patency, RR, SpO2: stable & adequate BP & HR: stable & adequate Hydration State: stable & adequate Anesthetic Complications: no major complications apparent and Pt Satisfied with anesthetic care
[2018-12-16] MEDS ORDERED: AMLODIPINE BESYLATE 5 MG TAB PO ONE (19:27)
[2018-12-17 06:48] LABS: Eosinophils # (auto) 0.02 K/uL (0-0.5); Eosinophils % (auto) 0.3 %; Hematocrit (blood only) 30.2 % (37-47); Hemoglobin 10.1 g/dL (12.0-16.0); Immature Granulocytes # (auto) 0.03 K/uL (0.00-0.02); Immature Granulocytes % (auto) 0.4 %; Lymphocytes # (auto) 2.07 K/uL (1.2-3.4); Lymphocytes % (auto) 30.2 %; Mean Corpuscular Hemoglobin 28.5 pg (25-34); Mean Corpuscular Hgb Conc 33.4 g/dL (32-36); Mean Corpuscular Volume 85.3 fL (80-100); Mean Platelet Volume 8.5 fL (7.4-10.4); Monocytes # (auto) 0.38 K/uL (0.11-0.59); Monocytes % (auto) 5.5 %; Neutrophils # (auto) 4.35 K/uL (1.4-6.5); Neutrophils % (auto) 63.6 %; Platelet Count 313 K/uL (130-400); RDW Coefficient of Variation 14.6 % (11.5-14.5); RDW Standard Deviation 45.8 fL (36.4-46.3); Red Blood Count 3.54 M/uL (4.2-5.4); White Blood Count 6.85 K/uL (4.8-10.8)
[2018-12-17 07:28] LABS: BUN Creatinine Ratio 26.2 (10-20); Calcium 7.9 mg/dl (8.5-10.1); Creatinine Clr Calc Pharmacy 143.1 ml/min; Est GFR (African American) 135.4; Est GFR (Non-African American) 116.8; Magnesium 1.4 mg/dl (1.8-2.4); Phosphorus 2.5 mg/dl (2.5-4.9); Potassium 2.9 mmol/L (3.5-5.1)
--- NOTE | 2018-12-17 07:51 | Anesthesiology Progress Note ---
Date of Service December 17, 2018 Anesthesia Post Procedure Vital Signs Vital Signs: Temp Pulse Resp BP Pulse Ox 12/16/18 22:45 37.5 C 105 H 18 158/76 H 91 12/16/18 15:31 36.7 C 98 H 17 170/70 H 93 Pain Intensity Flank: Pain Intensity: 7 Notes Mental Status: alert / awake / arousable and participated in evaluation Patient Amnestic to Procedure: Yes Nausea / Vomiting: adequately controlled Pain: adequately controlled Airway Patency, RR, SpO2: stable & adequate BP & HR: stable & adequate Hydration State: stable & adequate Anesthetic Complications: no major complications apparent and Pt Satisfied with anesthetic care
[2018-12-17] MEDS ORDERED: NSS + 20MEQ KCL 20 MEQ/1,000 ML BAG IV SCH (08:00)
[2018-12-17] MEDS: FAMOTIDINE 20 MG in SYRINGE 3 ML IV SCH ×2 (09:01→22:02)
[2018-12-17] MEDS: AMLODIPINE BESYLATE 5 MG TAB PO SCH (09:01)
[2018-12-17] MEDS: MoRPHine SULFATE 2 MG/ML CARP IV PRN ×2 (09:13→18:35)
[2018-12-17] MEDS: POTASSIUM CHLORIDE 40 MEQ in SODIUM CHLORIDE 0.9% 1000ML 1,000 ML IV SCH ×2 (09:13→19:20)
[2018-12-17] MEDS: POTASSIUM CHLORIDE / WTR 10 MEQ/100 ML PLCT IV SCH ×2 (09:13→10:59)
--- NOTE | 2018-12-17 09:49 | Surgery Progress Note ---
Date of Service December 17, 2018 Assessment & Plan (1) Small bowel obstruction: POD 2 ex lap, removal of gallstone obstruction seen with Dr. Bond can have clears ambulating Subjective feeling better, some flatus Physical Exam Gastrointestinal (Abdomen): Inspection/Auscultation: + abdomen distended (minimal) and + abdominal surgical incision (some lane drainage) Percussion/Palpation: abdomen soft Results & Data Vital Signs (Past 12 Hours) Vital Signs Temp Pulse Pulse Resp BP Pulse Ox 12/17/18 07:45 36.4 C L 97 H 17 162/77 H 93 12/16/18 22:45 37.5 C 105 H 18 158/76 H 91 PG Care Time/CCT Total # of Minutes Spent Total Time Spent with Patient: Total time spent is greater than 50% in coordin ation of care (as documented) at patient's floor/unit and/or counseling patient:
[2018-12-17] MEDS: ONDANSETRON INJ 2 MG/ML 2 ML VIAL IV PRN (13:04)
[2018-12-17] MEDS: MoRPHine SULFATE 4 MG/ML 1 ML CARP\\VIAL IV PRN (13:05)
[2018-12-17] MEDS: MAGNESIUM SULFATE / D5W 1 GM/100 ML BAG IV SCH ×2 (13:05→14:19)
[2018-12-17] MEDS: HEPARIN SOD 5,000 UNIT/0.5 ML VIAL SQ SCH ×2 (13:52→22:02)
--- NOTE | 2018-12-17 19:02 | Hospitalist Progress Note ---
Date of Service December 17, 2018 Assessment & Plan (1) Intractable nausea and vomiting: Presented with intractable N/V and diffuse abdominal pain as a [facility] She had one episode of vomiting prior to chemo the day prior to admission; then developed intractable N/V since receiving chemotherapy for first time on 12/12 Emesis Nonbloody Was not passing flatus, and last BM 12/11 LFTs all normal, so was not likely recurrent biliary obstruction Upon admission, CT abd/pel confirmed SBO distally, possible gallstone ileus, and possible fistula between GB and duodenum With leukocytosis likely stress response to vomiting and SBO. Discussed case with Surgery here upon admission--> recommended calling [facility] where she had all her other surgeries and care to see if needs to be transferred -She was accepted by Dr. Borges at [facility] on 12/13, but as she was still awaiting bed availability x 2 days and condition was not improving on 12/15 --> Consulted Surgery here on 12/15--> took her to OR for bowel resection and relieved the confirmed gallstone obstruction in the bowel Eleele drain removed, Bartlett out and voiding, NGT removed all on 12/16 Is afebrile, leukocytosis now resolved -continue pain control as needed -advanced clears - did not tolerate well this morning, surgery aware -continue Zofran, Compazine prn -continue IVFs with KCl -follow BMP and replace lytes as needed -continue IV Pepcid 20mg bid -advance diet after bowel function returns -added incentive spirometry Greatly appreciate Surgery management here (2) Small bowel obstruction: as above (3) Abdominal pain: secondary to known GB malignancy and now also with SBO as above -pain control (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, 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 however these biopsies came back negative for malignancy at [facility] -started chemotherapy 12/12 -poor prognosis -pain control -of note, Surgeon here did not see or feel any evidence of metastatic disease during procedure, but notes he had a small incision to look through (5) Hypertension: hypertensive urgency secondary to pain and not taking usual meds--> BP 199/74 on admission and now remains high at times but improved from previous -continue holding po HCTZ from home -continue IV hydralazine prn -added on amlodipine 5mg daily -follow BPs - acceptable with mild hypotension (6) Hyperlipidemia: hold home statin while taking in minimal po (7) Anxiety: no longer taking her Celexa -controlled (8) Depression: controlled as above, not currently on SSRI anymore (9) Carotid stenosis: -holding home Plavix and statin is s/p Left CEA and also has carotid stent (10) History of biliary stent insertion: in 11/2018 for obstructive jaundice, placed at [facility] LFTs here all normal, no evidence of dysfunction of stent (11) DVT prophylaxis: SCDs, surgery ok with adding enoxaparin Dispo-no need to transfer to [facility] at this point Continued stay on Med/Surg floor Ambulates independently, will return home at time of discharge DNR/DNI as discussed with patient Supervising Physician Co-Signing Physician Notes I have reviewed the pt chart and discussed current care with Ms. Tatiana NP and agree with her assessment and plan of this pt. Subjective Patient with n/v this morning, feeling unwell. Surgery aware, cautioned patient to avoid eating until no further nausea. Passing gas, no bm since surgery ROS Constitutional: no chills, aches, sweats or fever Respiratory: no sob,cough, sputum, or wheezing Cardiac: no chest pain, palpitations, edema, orthopnea or lightheadedness GI: see hpi : no dysuria or hesitancy Extremities: no joint pain or weakness Skin: no rash All other systems reviewed and negative Physical Exam Physical Exam: General: no distress Eyes: normal inspection, PERLL Respiratory: chest non tender, clear to auscultation, normal breath sounds, no respiratory distress, no accessory muscle use Cardiac: regular rate and rhythm, no rub or gallop, no murmur, no edema, no jvd GI/: active bowel sounds, no abd pain or tenderness, soft, non distended Extremities: normal range of motion, normal strength, non tender Neuro/Psych: alert and oriented x 3, normal mood and affect Skin: normal color, dry Results & Data Vital Signs (Past 12 Hours) Vital Signs Temp Pulse Pulse Resp BP Pulse Ox 12/17/18 15:56 36.6 C 83 18 159/63 H 97 12/17/18 12:44 37 C 90 16 151/78 H 95 12/17/18 07:45 36.4 C L 97 H 17 162/77 H 93 PG Care Time/CCT Total # of Minutes Spent Total Time Spent with Patient: Total time spent is greater than 50% in coordination of care (as documented) at patient's floor/unit and/or counseling patient:
[2018-12-18] MEDS: HEPARIN SOD 5,000 UNIT/0.5 ML VIAL SQ SCH ×3 (05:23→21:14)
[2018-12-18 06:03] LABS: Basophils # (auto) 0.01 K/uL (0-0.2); Basophils % (auto) 0.1 %; Eosinophils # (auto) 0.02 K/uL (0-0.5); Eosinophils % (auto) 0.3 %; Hematocrit (blood only) 29.5 % (37-47); Hemoglobin 10.1 g/dL (12.0-16.0); Immature Granulocytes # (auto) 0.02 K/uL (0.00-0.02); Immature Granulocytes % (auto) 0.3 %; Lymphocytes # (auto) 1.46 K/uL (1.2-3.4); Lymphocytes % (auto) 19.5 %; Mean Corpuscular Hemoglobin 29.2 pg (25-34); Mean Corpuscular Hgb Conc 34.2 g/dL (32-36); Mean Corpuscular Volume 85.3 fL (80-100); Mean Platelet Volume 8.3 fL (7.4-10.4); Monocytes # (auto) 0.64 K/uL (0.11-0.59); Monocytes % (auto) 8.6 %; Neutrophils # (auto) 5.33 K/uL (1.4-6.5); Neutrophils % (auto) 71.2 %; Platelet Count 266 K/uL (130-400); RDW Coefficient of Variation 14.6 % (11.5-14.5); RDW Standard Deviation 45.5 fL (36.4-46.3); Red Blood Count 3.46 M/uL (4.2-5.4); White Blood Count 7.48 K/uL (4.8-10.8)
[2018-12-18 06:39] LABS: Albumin Level 1.8 gm/dl (3.4-5.0); BUN Creatinine Ratio 35.1 (10-20); Calcium 8.3 mg/dl (8.5-10.1); Creatinine Clr Calc Pharmacy 130.8 ml/min; Est GFR (African American) 131.4; Est GFR (Non-African American) 113.4
[2018-12-18 06:42] LABS: Albumin Globulin Ratio 0.4 (0.9-2); Bilirubin,Total 0.6 mg/dl (0.2-1); Globulin 4.1 gm/dl (2.5-4.0); Total Protein 5.9 gm/dl (6.4-8.2)
[2018-12-18] MEDS: ONDANSETRON INJ 2 MG/ML 2 ML VIAL IV PRN ×2 (08:11→23:17)
--- NOTE | 2018-12-18 08:31 | Surgery Progress Note ---
Date of Service December 18, 2018 Assessment & Plan (1) Small bowel obstruction: POD 3 ex lap, removal of gallstone obstruction seen with Dr. Bond will check KUB keep on clears hypokalemia/natremia, given K+ yesterday per medicine lane drain removed Subjective had "blow out" this AM x2, large BM with second, had emesis overnight, minimal pain Physical Exam Gastrointestinal (Abdomen): Inspection/Auscultation: + abdomen distended (more distended today) and + abdominal surgical incision (no erythema) Percussio n/Palpation: abdomen soft Results & Data Vital Signs (Past 12 Hours) Vital Signs Temp Pulse Pulse Resp BP Pulse Ox 12/18/18 07:25 37.2 C 93 H 24 172/73 H 95 12/17/18 23:25 37.5 C 94 H 18 177/71 H 93 PG Care Time/CCT Total # of Minutes Spent Total Time Spent with Patient: Total time spent is greater than 50% in coordination of care (as documented) at patient's floor/unit and/or counseling patient:
[2018-12-18] MEDS ORDERED: ENOXAPARIN INJ 40 MG/0.4 ML SYR SQ SCH (09:00)
[2018-12-18] MEDS ORDERED: POTASSIUM CHLORIDE 40 MEQ in SODIUM CHLORIDE 0.9% 1000ML 1,000 ML IV SCH (09:15)
--- NOTE | 2018-12-18 09:38 | XRay Report ---
KUB HISTORY: Postop. Nausea. Vomiting. COMPARISON: Chest and abdominal series 12/15/2018. FINDINGS: Interval midline skin narda. Multiple dilated gas-filled loops of small bowel are again s een within the mid to left abdomen. These have slightly progressed and now measure up to 4 cm in diam eter. Common bile duct stent remains unchanged in position. There is a nondilated gas-filled proximal colon. No renal calculi. No ureteral calculi. No pneumoperitoneum or pneumatosis. IMPRESSION: Slight progression of the mildly dilated gas-filled loops of small bowel within the mid to left abdom en. However, there is now gas within the nondistended colon. Therefore, this could represent a postop erative ileus or residual small bowel obstruction. Electronically signed by: Chuck Ji M.D. 12/18/2018 9:37 AM
[2018-12-18] MEDS: AMLODIPINE BESYLATE 5 MG TAB PO SCH (10:09)
[2018-12-18] MEDS: FAMOTIDINE 20 MG in SYRINGE 3 ML IV SCH ×2 (10:11→21:58)
[2018-12-18] MEDS: POTASSIUM CHLORIDE / WTR 10 MEQ/100 ML PLCT IV SCH ×3 (10:20→12:50)
[2018-12-18] MEDS: MAGNESIUM OXIDE 400 MG TAB PO SCH ×2 (10:42→21:14)
[2018-12-18] MEDS: OXYCODONE/ACETAMINOPHEN 5mg/325mg TAB PO PRN ×2 (10:50→17:41)
--- NOTE | 2018-12-18 13:05 | Hospitalist Progress Note ---
Date of Service December 18, 2018 Assessment & Plan (1) Intractable nausea and vomiting: Presented with intractable N/V and diffuse abdominal pain as a direct [facility] from [facility] She had one episode of vomiting prior to chemo the day prior to admission; then developed intractable N/V since receiving chemotherapy for first time on 12/12 Emesis Nonbloody Was not passing flatus, and last BM 12/11 LFTs all normal, so was not likely recurrent biliary obstruction Upon admission, CT abd/pel confirmed SBO distally, possible gallstone ileus, and possible fistula between GB and duodenum With leukocytosis likely stress response to vomiting and SBO. Discussed case with Surgery here upon admission--> recommended calling [facility] where she had all her other surgeries and care to see if needs to be transferred -She was accepted by Dr. Borges at [facility] [place] [facility] on 12/13, but as she was still awaiting bed availability x 2 days and condition was not improving on 12/15 --> Consulted Surgery here on 12/15--> took her to OR for bowel resection and relieved the confirmed gallstone obstruction in the bowel Hunt[place] drain removed, Bartlett out and voiding, NGT removed all on 12/16 Is afebrile, leukocytosis now resolved -continue pain control as needed -advanced clears - continues to have intermittent nausea/vomiting -continue Zofran, Compazine prn -continue IVFs with KCl -follow BMP and replace lytes as needed -continue IV Pepcid 20mg bid -advance diet after bowel function returns -continue incentive spirometry Greatly appreciate Surgery management here (2) Small bowel obstruction: as above (3) Abdominal pain: secondary to known GB malignancy and now also with SBO as above -pain control (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, 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 however these biopsies came back negative for malignancy at [facility] -started chemotherapy 12/12 -poor prognosis -pain control -of note, Surgeon here did not see or feel any evidence of metastatic disease during procedure, but notes he had a small incision to look through (5) Hypertension: hypertensive urgency secondary to pain and not taking usual meds--> BP 199/74 on admission and now remains high at times but improved from previous -continue holding po HCTZ from home -continue IV hydralazine prn -added on amlodipine 5mg daily -follow BPs - continues to have asymptomatic hypertension (6) Hyperlipidemia: hold home statin while taking in minimal po (7) Anxiety: no longer taking her Celexa -controlled (8) Depression: controlled as above, not currently on SSRI anymore (9) Carotid stenosis: -resume home Plavix and statin is s/p Left CEA and also has carotid stent (10) History of biliary stent insertion: in 11/2018 for obstructive jaundice, placed at [facility] LFTs here all normal, no evidence of dysfunction of stent (11) DVT prophylaxis: SCDs, surgery ok with adding enoxaparin Dispo-no need to transfer to [facility] at this point Continued stay on Med/Surg floor Ambulates independently, will return home at time of discharge DNR/DNI as discussed with patient Subjective Ms. Leos continues to have intermittent nausea. She did have two bowel movements today. She has some pain in her abdomen but this is mostly tolerable. ROS Constitutional: no chills, aches, sweats or fever Respiratory: no sob,cough, sputum, or wheezing Cardiac: no chest pain, palpitations, edema, orthopnea or lightheadedness GI: see HPI : no dysuria or hesitancy Extremities: no joint pain or weakness Skin: no rash All other systems reviewed and negative Physical Exam Physical Exam: General: no distress Eyes: normal inspection, PERLL Respiratory: chest non tender, clear to auscultation, normal breath sounds, no respiratory distress, no accessory muscle use Cardiac: regular rate and rhythm, no rub or gallop, no murmur, no edema, no jvd GI/: active bowel sounds, abdomen tender, soft, mildly distended Extremities: normal range of motion, normal strength, non tender Neuro/Psych: alert and oriented x 3, normal mood and affect Skin: normal color, dry Results & Data Vital Signs (Past 12 Hours) Vital Signs Temp Pulse Pulse Resp BP Pulse Ox 12/18/18 11:52 86 166/72 H 12/18/18 11:27 36.8 C 91 H 19 176/69 H 93 12/18/18 07:25 37.2 C 93 H 24 172/73 H 95 PG Care Time/CCT Total # of Minutes Spent Total Time Spent with Patient: Total time spent is greater than 50% in coordination of care (as documented) at patient's floor/unit and/or counseling patient:
[2018-12-18] MEDS ORDERED: NSS + 20MEQ KCL 20 MEQ/1,000 ML BAG IV SCH (19:30)
[2018-12-18] MEDS: MoRPHine SULFATE 2 MG/ML CARP IV PRN (23:17)
[2018-12-19] MEDS: HEPARIN SOD 5,000 UNIT/0.5 ML VIAL SQ SCH ×3 (05:17→22:00)
[2018-12-19] MEDS: OXYCODONE/ACETAMINOPHEN 5mg/325mg TAB PO PRN ×2 (05:21→19:14)
[2018-12-19] MEDS: ONDANSETRON INJ 2 MG/ML 2 ML VIAL IV PRN ×3 (05:21→17:58)
[2018-12-19 06:09] LABS: Basophils # (auto) 0.02 K/uL (0-0.2); Basophils % (auto) 0.2 %; Hematocrit (blood only) 30.1 % (37-47); Hemoglobin 10.2 g/dL (12.0-16.0); Immature Granulocytes # (auto) 0.02 K/uL (0.00-0.02); Immature Granulocytes % (auto) 0.2 %; Lymphocytes # (auto) 2.38 K/uL (1.2-3.4); Lymphocytes % (auto) 29.3 %; Mean Corpuscular Hemoglobin 28.7 pg (25-34); Mean Corpuscular Hgb Conc 33.9 g/dL (32-36); Mean Corpuscular Volume 84.8 fL (80-100); Mean Platelet Volume 8.4 fL (7.4-10.4); Monocytes # (auto) 0.49 K/uL (0.11-0.59); Neutrophils # (auto) 5.22 K/uL (1.4-6.5); Neutrophils % (auto) 64.3 %; Platelet Count 224 K/uL (130-400); RDW Coefficient of Variation 14.7 % (11.5-14.5); Red Blood Count 3.55 M/uL (4.2-5.4); White Blood Count 8.13 K/uL (4.8-10.8)
[2018-12-19 06:33] LABS: Albumin Level 1.7 gm/dl (3.4-5.0); Calcium 7.9 mg/dl (8.5-10.1); Creatinine Clr Calc Pharmacy 138.7 ml/min; Est GFR (Non-African American) 115.6; Potassium 3.3 mmol/L (3.5-5.1)
[2018-12-19 06:36] LABS: Albumin Globulin Ratio 0.4 (0.9-2); Bilirubin,Total 0.5 mg/dl (0.2-1); Globulin 3.9 gm/dl (2.5-4.0); Total Protein 5.6 gm/dl (6.4-8.2)
--- NOTE | 2018-12-19 07:33 | Surgery Progress Note ---
Date of Service December 19, 2018 Assessment & Plan (1) Small bowel obstruction: POD#4 exlap, removal of gallstone obstruction Okay to trial a low fiber diet today. Instructed patient to continue on this diet until she has full return of normal bowel function D/C IVF and will D/C SCD's to lessen fall risk. Patient on SQH for DVT prophylaxis Oral K ordered for hypokalemia Will check on patient after lunch time to evaluate if she tolerated a diet Will add discharge instructions to follow up in clinic within 1 week for staple removal Patient seen and examined with Dr. Bond Subjective Patient had + BM's yesterday. She currently denies nausea, but she does state she had one bout of emesis overnight that appeared bilious. She otherwise stuck to a liquid diet. Of note she had a fall overnight and bumped her head, now with bandage in place. She is eager to go home. Physical Exam Physical Exam: awake/alert Gastrointestinal (Abdomen): Inspection/Auscultation: + abdominal surgical incision (surgical narda in place at midline, c/d/i) Percussion/Palpation: abdomen soft; abdomen nontender Results & Data Vital Signs (Past 12 Hours) Vital Signs Temp Pulse Resp BP Pulse Ox 12/18/18 23:00 36.9 C 84 18 177/74 H 94 12/18/18 21:02 36.8 C 82 16 156/73 H 95 12/18/18 19:45 84 197/82 H 95 PG Care Time/CCT Total # of Minutes Spent Total Time Spent with Patient: Total time spent is greater than 50% in coordination of care (as documented) at patient's floor/unit and/or counseling patient:
[2018-12-19] MEDS: MAGNESIUM OXIDE 400 MG TAB PO SCH ×2 (08:14→20:31)
[2018-12-19] MEDS: HEPARIN 100 UNIT/ML 5ML FLUSH FLUSH PRN ×2 (08:14→13:58)
[2018-12-19] MEDS: FAMOTIDINE 20 MG in SYRINGE 3 ML IV SCH ×2 (08:14→20:32)
[2018-12-19] MEDS: AMLODIPINE BESYLATE 5 MG TAB PO SCH (08:14)
[2018-12-19] MEDS: POTASSIUM CHLORIDE 20 MEQ TABCR PO SCH ×2 (08:22→20:32)
[2018-12-19] MEDS: CLOPIDOGREL BISULFATE 75 MG TAB PO SCH (08:22)
[2018-12-19] MEDS ORDERED: POTASSIUM CHLORIDE 20 MEQ TABCR PO STA ×2 (08:29→08:32)
--- NOTE | 2018-12-19 13:29 | Hospitalist Progress Note ---
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 Discussed case with Surgery here upon admission--> recommended calling [facility] where she had all her other surgeries and care to see if needs to be transferred -She was accepted by Dr. Borges at [facility] [place] on 12/13, but as she was still awaiting bed availability x 2 days and condition was not improving on 12/15 --> Consulted Surgery here on 12/15--> took her to OR for bowel resection and relieved the confirmed gallstone obstruction in the bowel [place] drain removed, Bartlett out and voiding, NGT removed all on 12/16 Is afebrile, leukocytosis now resolved KUB 12/18 revealed post op ileus Cytology reveals malignant cells in her peritoneal fluid. Discussed with oncology, they will follow up with her outpatient. 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 however these biopsies came back negative for malignancy at [facility] -started chemotherapy 12/12 -poor prognosis -pain control -of note, Surgeon here did not see or feel any evidence of metastatic disease during procedure, but notes he had a small incision to look through - malignant peritoneal cells in cytology (5) Hypertension: hypertensive urgency secondary to pain and not taking usual meds--> BP 199/74 on admission and now remains high at times but improved from previous -continue holding po HCTZ from home -continue IV hydralazine prn -added on amlodipine 5mg daily -follow BPs - continues to have asymptomatic hypertension (6) Hyperlipidemia: hold home statin while taking in minimal po (7) Anxiety: no longer taking her Celexa -controlled (8) Depression: controlled as above, not currently on SSRI anymore (9) Carotid stenosis: -resumed home Plavix is s/p Left CEA and also has carotid stent (10) History of biliary stent insertion: in 11/2018 for obstructive jaundice, placed at [facility] LFTs here all normal, no evidence of dysfunction of stent (11) DVT prophylaxis: SCDs, surgery ok with adding enoxaparin Dispo-no need to transfer to [facility] at this point Continued stay on Med/Surg floor PT/OT ordered to evaluate as patient fell in her room 12/18 DNR/DNI as discussed with patient Subjective Ms. Leos had a fall last night. Denies any headache or visual changes or discomfort due to the fall. Nausea is improving though per nursing she is eating very little. She does hope to go home soon. ROS Constitutional: no chills, aches, sweats or fever Respiratory: no sob,cough, sputum, or wheezing Cardiac: no chest pain, palpitations, edema, orthopnea or lightheadedness GI: no abdominal pain, nausea, vomiting, diarrhea or constipation : no dysuria or hesitancy Extremities: no joint pain or weakness Skin: no rash All other systems reviewed and negative Physical Exam Physical Exam: General: no distress Eyes: normal inspection, PERLL Respiratory: chest non tender, clear to auscultation, normal breath sounds, no respiratory distress, no accessory muscle use Cardiac: regular rate and rhythm, no rub or gallop, no murmur, no edema, no jvd GI/: active bowel sounds, tender abdomen, soft, mild distention Extremities: normal range of motion, normal strength, non tender Neuro/Psych: alert and oriented x 3, normal mood and affect Skin: normal color, dry, ecchymosis between right eye and nose Results & Data Vital Signs (Past 12 Hours) Vital Signs Temp Pulse Resp BP Pulse Ox 12/19/18 07:38 36.9 C 84 18 166/68 H 95 PG Care Time/CCT Total # of Minutes Spent Total Time Spent with Patient: Total time spent is greater than 50% in coordination of care (as documented) at patient's floor/unit and/or counseling patient:
[2018-12-20] MEDS: HEPARIN SOD 5,000 UNIT/0.5 ML VIAL SQ SCH (05:22)
[2018-12-20] MEDS: HEPARIN 100 UNIT/ML 5ML FLUSH FLUSH PRN (05:37)
[2018-12-20 06:12] LABS: Basophils # (auto) 0.03 K/uL (0-0.2); Basophils % (auto) 0.3 %; Eosinophils # (auto) 0.05 K/uL (0-0.5); Eosinophils % (auto) 0.5 %; Hematocrit (blood only) 29.1 % (37-47); Hemoglobin 9.8 g/dL (12.0-16.0); Immature Granulocytes # (auto) 0.03 K/uL (0.00-0.02); Immature Granulocytes % (auto) 0.3 %; Lymphocytes # (auto) 3.59 K/uL (1.2-3.4); Lymphocytes % (auto) 33.1 %; Mean Corpuscular Hemoglobin 28.9 pg (25-34); Mean Corpuscular Hgb Conc 33.7 g/dL (32-36); Mean Corpuscular Volume 85.8 fL (80-100); Mean Platelet Volume 8.8 fL (7.4-10.4); Monocytes # (auto) 0.97 K/uL (0.11-0.59); Monocytes % (auto) 8.9 %; Neutrophils # (auto) 6.17 K/uL (1.4-6.5); Neutrophils % (auto) 56.9 %; Platelet Count 188 K/uL (130-400); RDW Coefficient of Variation 15.1 % (11.5-14.5); RDW Standard Deviation 47.5 fL (36.4-46.3); Red Blood Count 3.39 M/uL (4.2-5.4); White Blood Count 10.84 K/uL (4.8-10.8)
[2018-12-20 06:48] LABS: Albumin Level 1.6 gm/dl (3.4-5.0); BUN Creatinine Ratio 44.8 (10-20); Calcium 7.8 mg/dl (8.5-10.1); Creatinine Clr Calc Pharmacy 143.1 ml/min; Est GFR (African American) 135.4; Est GFR (Non-African American) 116.8; Magnesium 1.7 mg/dl (1.8-2.4); Potassium 3.3 mmol/L (3.5-5.1)
[2018-12-20 06:51] LABS: Albumin Globulin Ratio 0.4 (0.9-2); Bilirubin,Total 0.4 mg/dl (0.2-1); Globulin 3.7 gm/dl (2.5-4.0); Total Protein 5.3 gm/dl (6.4-8.2)
[2018-12-20] MEDS ORDERED: POTASSIUM CHLORIDE 20 MEQ TABCR PO STA (08:17)
[2018-12-20] MEDS: MAGNESIUM OXIDE 400 MG TAB PO SCH (08:50)
[2018-12-20] MEDS: POTASSIUM CHLORIDE 20 MEQ TABCR PO SCH (08:50)
[2018-12-20] MEDS: AMLODIPINE BESYLATE 5 MG TAB PO SCH (08:51)
[2018-12-20] MEDS: CLOPIDOGREL BISULFATE 75 MG TAB PO SCH (08:51)
[2018-12-20] MEDS: FAMOTIDINE 20 MG in SYRINGE 3 ML IV SCH (08:51)
[2018-12-20] MEDS: ONDANSETRON INJ 2 MG/ML 2 ML VIAL IV PRN (08:56)
[2018-12-20] MEDS ORDERED: MAGNESIUM SULFATE / D5W 1 GM/100 ML BAG IV ONE (10:15)
--- NOTE | 2018-12-20 10:25 | Surgery Progress Note ---
Date of Service December 20, 2018 Assessment & Plan (1) Biliary obstruction: 12/20/18 Patient tolerating low fiber diet Has + return of bowel function Okay for discharge from surgical standpoint Will ask patient to schedule follow up in clinic with Dr. Bond next week for staple removal Will send home with script for potassium and magnesium Dr. Bond saw patient this AM Subjective Patient with no complaints overnight. Patient is tolerating a low fiber diet without abdominal pain, nausea/vomiting. Passing BMs and flatus. Physical Exam Physical Exam: awake/alert Gastrointestinal (Abdomen): Inspection/Auscultation: + abdominal surgical incision (midline incision with surgical narda. minimal serous drainage ) Percussion/Palpation: abdomen soft; abdomen nontender Results & Data Vital Signs (Past 12 Hours) Vital Signs Temp Pulse Resp BP Pulse Ox 12/20/18 08:03 37.0 C 89 16 169/71 H 96 12/19/18 23:48 157/71 H 12/19/18 23:04 36.5 C 86 16 168/77 H 98 PG Care Time/CCT Total # of Minutes Spent Total Time Spent with Patient: Total time spent is greater than 50% in coordination of care (as documented) at patient's floor/unit and/or counseling patient:
--- NOTE | 2018-12-20 10:42 | Discharge Summary ---
Date of Service December 20, 2018 Admission HPI Per Admitting Provider This patient is a 68 yo female with a h/o HTN, hyperlipidemia, BERTO s/p left CEA, anxiety/depression, and recent diagnosis of poorly differentiated gallbladder carcinoma, who presented as a direct admission from the Cancer Center for intractable nausea/vomiting and diffuse abdominal pain. SHe reports she had one episode of vomiting yesterday before receiving her first chemotherapy treatment. SHe was able to tolerate the chemotherapy and went home and ate dinner. She then woke up this AM and has been vomiting ever since. The vomit is nonbloody, no coffee ground emesis. It is green-brown in color. SHe has her usual right sided abdominal pain and right flank pain that is typically improved with oxycodone, however she also now has diffuse lower abdominal pain as well. Denies fevers/chills, lightheadedness, chest pain, shortness of breath. She does have a sore throat from vomiting. Her last BM was 2 days ago and she reports no passing of flatus today either. Her labs showed a eukocytosis of 16k and thrombocytosis in the 500s, but FTs and lipase are all normal. Lytes and renal function ok as well. She went in to see her Oncologist and received 2L IVFs as well as IV steroids. But the oncologist was concerned about the degree of N/V and sent her in for admission for further workup. After admission, a CT scan here showed a distal SBO and possible stones in the small bowel or a gallstone ileus. It also showed a possible gallbladder fistula into the duodenum. Principal Diagnosis Small bowel obstruction Discharge Exam Constitutional WD/WN, vitals as above Respiratory normal respiratory effort, lungs clear to auscultation Cardiovascular RRR, no murmur, no edema Gastrointestinal (Abdomen) Inspection/Auscultation: + abdomen distended and + hypoactive bowel sounds Percussion/Palpation: + abdomen tender and abdomen soft; no guarding Musculoskeletal no cyanosis or clubbing, extremities motor strength 5/5 Skin no rashes, warm and dry incision well approximated, scant amount of serosanguineous drainage, no erythema, narda intact Neurologic patellar DTR's 2+ bilat, sensation intact Psychiatric A+Ox3, euthymic affect Discharge Data Allergies Allergy/AdvReac Type Severity Reaction Status Date / Time Penicillins Allergy Intermediate Hives Verified 12/10/18 07:08 Consultations 12/13/18 17:02 Consult Case Management - Discharge Planning Routine 12/13/18 19:40 Burn CD for patient Stat 12/15/18 12:49 Consult General Surgery Routine Procedures Performed Operation Date: 12/15/18 13:50 Actual Procedures p Exploratory Laparotomy, Removal of Gallstone obstruction(Not Applicable) - Jim Bond MD Ordered Studies 12/13/18 16:58 CT abd pelvis IV con only Urgent Hospital Course (1) Intractable nausea and vomiting: Presented with intractable N/V and diffuse abdominal pain as a direct admission from the Cancer Center - CT abd/pel confirmed SBO distally, possible gallstone ileus, and possible fistula between GB and duodenum Discussed case with Surgery here upon admission--> recommended calling [facility] where she had all her other surgeries and care to see if needs to be transferred -She was accepted by Dr. Borges at [facility] on 12/13, but as she was still awaiting bed availability x 2 days and condition was not improving on 12/15 --> Consulted Surgery here on 12/15--> took her to OR for bowel resection and relieved the confirmed gallstone obstruction in the bowel KUB 12/18 revealed post op ileus Cytology reveals malignant cells in her peritoneal fluid. Discussed with oncology, they will follow up with her outpatient. She will resume her treatments once she is taking better consistent po -continue pain control as needed -advanced diet to low fiber - eating very little - continue with this diet until full return of bowel function - she has had bowel movements since her surgery and nausea is improving -continue Zofran, Compazine prn -IVF dc'd -follow BMP and replace lytes as needed - continues to require replacement - will discharge with po magnesium and potassium and recheck electrolytes on Monday. 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 however these biopsies came back negative for malignancy at [facility] -started chemotherapy 12/12 -poor prognosis -of note, Surgeon here did not see or feel any evidence of metastatic disease during procedure, but notes he had a small incision to look through - malignant peritoneal cells in cytology (5) Hypertension: hypertensive urgency secondary to pain and not taking usual meds--> BP 199/74 on admission and now remains high at times but improved from previous -continue holding po HCTZ from home due to electrolyte abnormalities -added on amlodipine 5mg daily -continues to have asymptomatic hypertension (6) Hyperlipidemia: resume home (7) Anxiety: no longer taking her Celexa -controlled (8) Depression: controlled as above, not currently on SSRI anymore (9) Carotid stenosis: -resumed home Plavix - change home omeprazole to pantoprazole to avoid interaction is s/p Left CEA and also has carotid stent (10) History of biliary stent insertion: in 11/2018 for obstructive jaundice, placed at [facility] LFTs here all normal, no evidence of dysfunction of stent (11) DVT prophylaxis: SCDs, enoxaparin while inpatient Dispo home - PT/OT ordered to evaluate as patient fell in her room 12/18 - recommended return home I did recommend another night here in the hospital given how little po patient is taking with continued difficulty keeping electrolytes wnl. She declined to stay and would like to be discharged. Total Time Total Time Spent Total Time Spent (In Minutes): greater than 30 minutes Discharge Plan Discharge Items Patient Disposition: Home - Self-Care Reason For Visit: INTRACTABLE NAUSEA,VOMITING Discharge Diagnosis: Small bowel obstruction, gallbladder cancer Condition on Discharge: Good Activity: As commented below Lifting: None Exercise/Sports: Gradually increase as tolerated Non-emergency contact: Primary Care Provider and Surgeon Call non-emergency contact if: you have any medication questions, your pain is not controlled, your pain is worsening, you have a fever and your wound has increased redness Follow-up/Referrals: Jim Bond MD [Surgeon] - 12/24/18 9:45 am (Please, follow up at Dr. Bond's office on MondayDecember 24 at 9:45 am. *The office is located at [address] [place] [address] in [place]. If you need to change this appointment, call the office at [phone].) Sam Briggs [Physician] - 01/02/19 9:50 am (Please, follow up with Dr. Briggs on MondayJanuary 02 at 9:50 am. *If you need to change this appointment, call the office at [phone].) Alona Honeycutt MD [Primary Care Provider] - 12/25/18 10:30 am (Please, follow up at Dr. Honeycutt's office with her associate, Dr. Sean Alva, on MondayDecember 25 at 10:30 am. *If you need to change this appointment, call the office at [phone].) Diet: Low Fiber Ambulatory Orders: Complete Blood Count with Diff (Routine) Timeframe: 20181222 Location: Determined by Patient Ordered By: Norma Simpson Comprehensive Metabolic Panel (Routine) Timeframe: 20181222 Location: Determined by Patient Ordered By: Norma Simpson Magnesium (Routine) Timeframe: 20181222 Location: Determined by Patient Ordered By: Norma Simpson Addtl Attending Provider Instructions: Intractable nausea and vomitin/9 you had an exploratory laparoscopic bowel surgery and removal of an obstructing gallstone - continue low fiber diet until eating -continue Zofran -please have your blood work drawn on Monday and follow up with your pcp on Monday Hypertension: hypertensive urgency secondary to pain and not taking usual home medications -continue holding HCTZ from home - you have been started on amlodipine instead - please check your blood pressure daily at home and take a log to your next primary care visit Carotid stenosis: -resumed home Plavix - I have changed your omeprazole to pantoprazole as omeprazole and Plavix interact to decrease the Plavix's effectiveness Please schedule an appointment for your surgical narda to be removed in the surgery clinic next week. You may cover your incision with 4x4 gauze and tape if needed to protect your clothing. Pending Studies at Discharge: No Stand-Alone Forms: My [facility], Smoking Cessation Medications and DC Order Prescriptions: New magnesium oxide 400 mg (241.3 mg magnesium) Tablet 400 mg PO BID Qty: 60 RF: 0 amlodipine 5 mg tablet 5 mg PO DAILY Qty: 30 RF: 0 potassium chloride 10 mEq capsule, extended release 20 meq PO BID Qty: 14 RF: 0 pantoprazole 40 mg tablet,delayed release (DR/EC) 40 mg PO DAILY Qty: 30 RF: 0 Continued atorvastatin 40 mg tablet 40 mg PO QPM RF: 0 clopidogrel 75 mg tablet 75 mg PO QAM RF: 0 oxycodone 5 mg capsule 5 mg PO Q4 PRN (Reason: Pain) RF: 0 ondansetron 4 mg tablet,disintegrating 4 mg PO Q8 PRN (Reason: Nausea) RF: 0 Discontinued hydrochlorothiazide 12.5 mg tablet 12.5 mg PO QAM RF: 0 omeprazole 20 mg capsule,delayed release(DR/EC) 20 mg PO QAM RF: 0 Discharge Orders: Discharge Order (Routine); Ordered 12/20/18 Ordered By: Norma Simpson Admission Data Admit Date/Time: 12/13/18 16:58 Attending Provider: Raul Griffith Admit Provider: Eileen Walsh Primary Care Provider: Alona Honeycutt Other Providers: Jim Bond Other Interventions: Discharge Summary Assessment (RN) Last Done: 12/20/18 11:47 DC Date/Time DO NOT enter until pt leaves facility: 12/20/18 12:20 Supervising Physician Co-Signing Physician Notes I supervised Norma Simpson NP on this patient's care. I examined the patient today independently of her. I discussed the plan of care with her with the plan being as written in her note except for any following changes/exceptions: None. Improving slowly, but wants to go home.
[2018-12-20] MEDS ORDERED: FAMOTIDINE 20 MG TAB PO SCH (21:00)
== END 2018-12-20 12:20 | disposition home or self-care (01) | DRG 357 ==
LOC: 4W 16:05 → SUATTDRO 16:58 → 3W 12-15 16:41